=== PATIENT | female | born 1970 | race Caucasian/White ===

== ENCOUNTER 2018-12-20 20:22 | Observation (INO) | payer SELFPAY ==
[~2018-12-20] VITALS: Ht 172.7 cm; Wt 97.2 kg
[2018-12-20 11:50] VITALS: BP 129/84
[2018-12-20 21:12] LABS: BASOPHILS # (AUTO) 0.1 (0.0-0.1); BASOPHILS % 0.7 % (0.0-1.0); EOSINOPHILS # (AUTO) 0.3 (0.0-0.4); EOSINOPHILS % 2.1 % (0.0-6.0); HEMATOCRIT 35.1 % (34.2-44.1); HEMOGLOBIN 11.6 g/dL (12.0-16.0); LYMPHOCYTES # (AUTO) 2.7 (1.0-3.2); LYMPHOCYTES % 20.7 % (18.0-39.1); MEAN CORPUSCULAR HEMOGLOBIN 28.1 pg (28-32); MONOCYTES # (AUTO) 0.8 (0.2-0.8); MONOCYTES % 5.7 % (4.4-11.3); NEUTROPHILS # (AUTO) 9.3 (2.1-6.9); NEUTROPHILS % 70.3 % (38.7-80.0); PLATELET COUNT 386 x10e3/uL (140-360); RED BLOOD COUNT 4.13 x10e6/uL (3.6-5.1); RED CELL DISTRIBUTION WIDTH 13.1 % (11.7-14.4)
[2018-12-20 21:26] LABS: ALANINE AMINOTRANSFERASE 24 IU/L (0-55); ALBUMIN 3.1 g/dL (3.5-5.0); ALKALINE PHOSPHATASE 100 IU/L (40-150); BLOOD UREA NITROGEN 13 mg/dL (7-26); BUN/CREATININE RATIO 14 (6-25); CALCIUM 10.2 mg/dL (8.4-10.2); CARBON DIOXIDE 23 mmol/L (22-29); CHLORIDE 101 mmol/L (98-107); CREATININE, SERUM 0.93 mg/dL (0.57-1.11); EST GLOMERULAR FILTRATION RATE > 60 ML/MIN (60-); GLUCOSE 140 mg/dL (74-118); SODIUM 134 mmol/L (136-145)
[2018-12-20] MEDS ORDERED: no home meds (21:34)
[2018-12-20] MEDS ORDERED: VANCOMYCIN 1GM/NS 250 ML 250 ML IV STA (21:50)
[2018-12-20 22:28] VITALS: BP 158/106
[2018-12-20] MEDS: MORPHINE SULFATE INJ 4 MG/ML INJ 1ML IV PRN (22:29)
[2018-12-20] MEDS: ONDANSETRON HCL INJ 2MG/ML 2ML 2 MG/ML VIAL IV PRN (22:29)
[2018-12-20 23:35] VITALS: BP 139/58
[2018-12-21] VITALS (7 sets, daily range): BP systolic 115–129; BP diastolic 67–83
[2018-12-21] MEDS ORDERED: SODIUM CHLORIDE 0.9% 250ML 250 ML ONE (04:25)
--- NOTE | 2018-12-21 05:21 | NUR ---
Outside pharmacy states he is unable to locate patient's new abx orders. Will alert in-house pharmacy when they open.
[2018-12-21] MEDS: CEFEPIME 1GM/NS 0.9% 50 ML 50 ML IV SCH ×2 (05:24→15:34)
[2018-12-21] MEDS: VANCOMYCIN 1GM/NS 250 ML 250 ML IV SCH ×2 (05:24→16:12)
--- NOTE | 2018-12-21 06:55 | NUR ---
rounded with night club manager nurse, patient aware of change and in no distress. Call edward within reach and bed in lowest position
[2018-12-21] MEDS: ACETAMINOPHEN 325 MG TAB PO PRN (08:00)
--- NOTE | 2018-12-21 09:12 | NUR ---
SOCIAL WORK INITIAL ASSESSMENT Landing Worker to bedside to discuss plan of care with patient/family. CM/SW role and care transitions discussed. Anticipated discharge plan discussed along with duration of care. CM/SW discussed patients right to make decisions in care. CM/SW work hours given. Patient lives: IN APARTMENT WITH MOTHER AND SON, RELOCATED HERE FROM [place] 7 MONTHS AGO Admit/Transfer: VIA ED POA/Emergency contact: KENY SANCHEZ [phone] Current/Previous Home Health: NONE PCP/Follow-up Care: NONE GAVE RESOURCES FOR [facility] AND [facility] Current/Previous DME: NONE Other Services: NONE Employment Status: NONE Areas of Concerns: NONE Referral Needs: GAVE PACKET OF INFORMATION WITH COMMUNITY RESOURCES FOR ASSISTANCE WITH LOW TO NO INCOME TO PATIENT. RESOURCES THAT PATIENT MAY BE ABLE TO FOLLOW UP UPON DISCHARGE. PT EDUCATED ON EACH RESOURCE AND UNDERSTANDING HOW TO FOLLOW UP TO SEE IF QUALIFIED FOR EACH RESOURCE. Education Needs: NONE IMM/WELLS given and signed (if applicable): NA Goal for discharge: RETURN HOME CM/SW left business card at the bedside with contact information. Name and number was also written on the patients whiteboard. Patient verbalized understanding of discussion. CM will follow-up with ongoing discharge and transition of care needs.
--- NOTE | 2018-12-21 09:14 | NUR ---
FILED POST DISCHARGE STATUS FORM IN FRONT OF CHART PT TO RETURN HOME WITH NO NEEDS
--- NOTE | 2018-12-21 13:31 | Consultation ---
DATE OF CONSULTATION: REASON FOR CONSULTATION: Cellulitis of the breast, perhaps early abscess. This patient who is a very pleasant 48-year-old white female denies past medical history. Comes in with a 4-day history of redness and swelling. An ulcer noted on her right breast. There is no specific trauma that she can think of. It happened spontaneously. The patient came to the restroom, which she was evaluated and started on IV antibiotics. Infectious disease was consulted. Surgery was consulted. PAST MEDICAL HISTORY: She denies. PAST SURGICAL HISTORY: She denies. ALLERGIES: NKA. SOCIAL HISTORY: There is no smoking, drug abuse or alcohol abuse. FAMILY HISTORY: Noncontributory. REVIEW OF SYSTEMS: At present time: HEENT: Negative. PULMONARY: Negative. CARDIAC: Negative. : Negative. SKIN: There is no other rashes. PHYSICAL EXAMINATION GENERAL: She is currently alert and oriented. Does not seem to be in acute distress. VITALS: Stable. Afebrile. HEENT: Normocephalic. Not icteric. NECK: Supple. No JVD. No palpable thyromegaly. CHEST: Clear bilaterally. HEART: S1 and S2. No S3, S4 or murmur. ABDOMEN: Soft. Bowel sounds present. No tenderness. No hepatosplenomegaly. EXTREMITIES: No edema. BREASTS: On bilateral breasts, there is erythema. There is edema. There is no fluctuation. There is minimal induration. There is an ulcer about 1 x 1 cm noted with yellow eschar at the base. IMPRESSION: Cellulitis of the breast, early abscess. She is currently on vancomycin and cefepime. Agree with above. Obtain wound culture. Will check CBC and check Chem panel. Follow vancomycin trough. Further recommendations to follow. Job#: [id number] MT
--- NOTE | 2018-12-21 19:06 | NUR ---
report given to cook night nurse, patient aware of change. Call edward within reach and bed in lowest position.
[2018-12-21] MEDS: ONDANSETRON HCL INJ 2MG/ML 2ML 2 MG/ML VIAL IV PRN (19:15)
[2018-12-21] MEDS: MORPHINE SULFATE INJ 4 MG/ML INJ 1ML IV PRN (19:15)
[2018-12-22] VITALS (8 sets, daily range): BP systolic 114–132; BP diastolic 62–92
[2018-12-22] MEDS: CEFEPIME 1GM/NS 0.9% 50 ML 50 ML IV SCH ×2 (04:05→15:54)
[2018-12-22] MEDS: VANCOMYCIN 1GM/NS 250 ML 250 ML IV SCH ×2 (04:05→15:54)
[2018-12-22 07:10] LABS: BASOPHILS # (AUTO) 0.1 (0.0-0.1); BASOPHILS % 0.6 % (0.0-1.0); EOSINOPHILS # (AUTO) 0.4 (0.0-0.4); HEMATOCRIT 32.8 % (34.2-44.1); HEMOGLOBIN 10.6 g/dL (12.0-16.0); LYMPHOCYTES # (AUTO) 3.1 (1.0-3.2); LYMPHOCYTES % 25.8 % (18.0-39.1); MEAN CORPUSCULAR HEMOGLOBIN 27.8 pg (28-32); MEAN CORPUSCULAR HGB CONC 32.3 g/dL (31-35); MEAN CORPUSCULAR VOLUME 86.1 fL (81-99); MONOCYTES # (AUTO) 0.9 (0.2-0.8); MONOCYTES % 7.5 % (4.4-11.3); NEUTROPHILS # (AUTO) 7.4 (2.1-6.9); NEUTROPHILS % 62.8 % (38.7-80.0); PLATELET COUNT 324 x10e3/uL (140-360); RED BLOOD COUNT 3.81 x10e6/uL (3.6-5.1); RED CELL DISTRIBUTION WIDTH 13.2 % (11.7-14.4)
[2018-12-22] MEDS: ACETAMINOPHEN 325 MG TAB PO PRN (07:27)
--- NOTE | 2018-12-22 07:35 | NUR ---
culture of breast wound sent to lab as ordered. see shift assess.
[2018-12-22] MEDS ORDERED: MIDAZOLAM HCL 2 MG/2 ML VIAL ONE (14:16)
[2018-12-22] MEDS ORDERED: FENTANYL CITRATE/PF 100MCG/2 ML INJ ONE (14:16)
[2018-12-22] MEDS ORDERED: BACITRACIN 50,000 UNIT VIAL ONE (14:36)
--- NOTE | 2018-12-22 14:52 | Consultation ---
DATE OF CONSULTATION: December 22, 2018 SURGICAL CONSULTATION REFERRING PHYSICIAN: Dr. Jacques Meyers. HISTORY OF PRESENT ILLNESS: Patient is a 48-year-old female who presents with complaints of pain and swelling in the right breast that started about 5 days ago. She was admitted to the hospital 2 days ago and has been treated with IV antibiotics, but the swelling has persisted with a concern that there may be an abscess in the right breast. The patient's past medical history is otherwise unremarkable. She has no chronic medical problems. She says she has hypothyroidism and is supposed to be taking hormone but is not taking it now. She has not had previous surgery. ALLERGIES: THERE ARE NO KNOWN ALLERGIES. FAMILY HISTORY: Noncontributory. SOCIAL HISTORY: The patient does not smoke cigarettes or drink alcohol. REVIEW OF SYSTEMS: As stated above. She has not had any fever. She has not had problems with her breasts in the past. PHYSICAL EXAMINATION: GENERAL: The patient is awake and alert, in no distress. VITALS: Normal. She is afebrile. HEENT: Unremarkable. Sclera is nonicteric. NECK: Supple with no masses. LUNGS: Equal breath sounds are clear bilaterally. CARDIAC: Regular rate and rhythm with no murmur. BREASTS: In the right breast there is erythema and swelling with induration and some fluctuance. There is no abnormality of the left breast. ABDOMEN: Soft. No tenderness. No mass. No organomegaly. EXTREMITIES: Have no edema. Pulses are palpable. NEUROLOGIC: Intact. LABORATORY DATA: White blood cell count is slightly elevated at 11.8. Hemoglobin and hematocrit are normal. Chemistries are essentially normal. ASSESSMENT: A 48-year-old female with abscess in the right breast which has not improved with intravenous antibiotics. PLAN: Incision and drainage to be done in the operating room today. Procedure was explained to the patient including risks, benefits and alternatives. She understands. She has had the opportunity to ask questions. Thank you for asking me to see Ms. Jones. Job#: [id number] EV
[2018-12-22] MEDS ORDERED: HYDROCODONE/APAP 5MG-325MG TAB PO PRN (15:00)
[2018-12-22] MEDS ORDERED: ONDANSETRON HCL INJ 2MG/ML 2ML 2 MG/ML VIAL IV PRN (15:00)
--- NOTE | 2018-12-22 15:43 | Operative Report ---
DATE OF PROCEDURE: December 22, 2018 PREOPERATIVE DIAGNOSES: 1. Right breast abscess. 2. Right breast cellulitis. POSTOPERATIVE DIAGNOSES: 1. Right breast abscess. 2. Right breast cellulitis. PROCEDURE: Incision and drainage of right breast abscess with incisional biopsy from right breast abscess. INSECTICIDE MIXER: None. ANESTHESIA: General. INDICATIONS AND FINDINGS: The patient is a 48-year-old female who was admitted to the hospital with complaints of redness and swelling in the right breast. Exam revealed an abscess. At surgery there was an abscess in the right breast in the inner lower quadrant containing approximately 5 mL of purulent fluid. There was also some devitalized subcutaneous tissue which was excised and some devitalized overlying the skin. TECHNIQUE: After adequate general anesthesia with patient in the supine position, the right breast was prepped and draped in sterile fashion with Betadine solution. An elliptical incision was made encompassing some necrotic skin over the area of the abscess, and the abscess cavity was entered. About 5 mL of purulent fluid was drained. A sample was taken for culture and sensitivity. There was some devitalized subcutaneous tissue, and this was excised as well as some more of the skin. This was submitted as a biopsy, as was some of the wall of the abscess. Hemostasis was achieved with electrocautery. The abscess cavity was irrigated with saline. It was then packed open with 1/2 inch iodoform gauze and a sterile dressing applied. The patient tolerated the procedure well. Estimated blood loss was 5 mL. There were no complications. All counts were correct. The patient was taken to the recovery room in satisfactory condition. Job#: [id number] EV cc:WESLY WORLEY MD
[2018-12-22] MEDS ORDERED: PROPOFOL IV EMULSION 10 MG/ML 20 ML VIAL ONE (16:15)
[2018-12-22] MEDS ORDERED: SEVOFLURANE INHAL SOLN 250 ML PEN BTL ONE (16:15)
[2018-12-22] MEDS ORDERED: KETOROLAC TROMETHAMINE 30 MG/ML VIAL ONE (16:15)
[2018-12-22] MEDS ORDERED: DEXAMETHASONE SOD PHOS INJ 4 MG/ML VIAL ONE (16:15)
[2018-12-22] MEDS ORDERED: ONDANSETRON HCL INJ 2MG/ML 2ML 2 MG/ML VIAL ONE (16:15)
[2018-12-22] MEDS ORDERED: LIDOCAINE HCL 2% LOCAL INJ 5 ML SDV VIAL INJ ONE (16:15)
--- NOTE | 2018-12-23 00:47 | NUR ---
PATIENT IS ASLEEP, SHE'S EASY TO AROUSE. DRESSING REMAINS DRY AND INTACT TO THE RIGHT BREAST, PATIENT DENIES PAIN. CALL LIGHT WITHIN EASY REACH, INSTRUCTED TO CALL FOR ASSISTANCE NEEDED.
[2018-12-23 01:00] VITALS: BP 114/72
--- NOTE | 2018-12-23 03:50 | NUR ---
PATIENT CONDITION STABLE, SHE DENIES PAIN. NO DRAINAGE OR BLEED NOTED FROM THE DRESSING TO THE RIGHT BREAST.
[2018-12-23] MEDS: CEFEPIME 1GM/NS 0.9% 50 ML 50 ML IV SCH (04:09)
[2018-12-23 04:30] VITALS: BP 123/78
[2018-12-23] MEDS: VANCOMYCIN 1GM/NS 250 ML 250 ML IV SCH ×2 (04:54→14:42)
--- NOTE | 2018-12-23 07:02 | Progress Note ---
DATE: SUBJECTIVE: This 48-year-old female comes in with cellulitis of the breast and abscess of the breast. The patient is status post incision and drainage of the breast. The patient is currently on vancomycin and cefepime, and hydrocodone for pain control. Currently feeling better, afebrile, no pain noted. The patient is alert and oriented x3. OBJECTIVE VITAL SIGNS: Temperature is 97.3, pulse of 84, blood pressure is 123/78, and pulse oximetry of 95% on room air. GENERAL: The patient is alert and oriented x3. HEENT: Normocephalic and atraumatic. Pupils are reactive to light and accommodation. CVS: S1 and S2 normal. Regular rate and rhythm. ABDOMEN: Nontender and nondistended. BREASTS: Right breast, radiology equipment servicer in room, the patient's right breast has been covered and no drainage and bandage looks clean and dry. LABORATORY VALUES: The patient's white count is 11.83, hemoglobin of 10.6, hematocrit of 32.8. Chemistry; sodium 134 and glucose is 140. TOXICOLOGY: Vancomycin trough was 4.5. Microbiology: The patient's gram-stain and anaerobic culture pending. Gram-stain wound culture pending. Blood cultures, no growth in 48 hours. ASSESSMENT AND PLAN: Right breast cellulitis and abscess status post I and D. We will continue to monitor the patient. Awaiting culture results. At this point in time, we will continue the patient on vancomycin and cefepime. Further recommendations per clinical course. We will continue to monitor the patient. The patient's glucose has been running high, questionable diabetes, so we will order hemoglobin A1c and labs for tomorrow. Job#: [id number] BHAVNA
[2018-12-23 07:53] VITALS: BP 143/81
--- NOTE | 2018-12-23 08:02 | NUR ---
Patient up in bed, Alert with no distress, I&D site right breast dressing is intact, no c/o pain, denies any chest pain or SOB, Call light in reach
[2018-12-23 10:32] VITALS: BP 143/81
[2018-12-23 11:23] VITALS: BP 148/88
--- NOTE | 2018-12-23 13:08 | NUR ---
Dr. Medina has written ok for dc. Nick VERA is aware and has call out to ID for RX for antibiotics for pt. She has staph aureus in wound cx.
--- NOTE | 2018-12-23 13:10 | NUR ---
Patient had shower and dressing changedon right breast.
--- NOTE | 2018-12-23 14:20 | NUR ---
Dr Salvador here for rounds, recvd new order to give evening Dos of vancomycin 1g IV give it now and after that patient can go home, prescription given for oral antibiotic. New discharge order recvd from Dr Foss
[2018-12-23 15:39] VITALS: BP 149/92
[2018-12-23] MEDS ORDERED: DOXYCYCLINE HY100 MG PO (16:06)
--- NOTE | 2018-12-23 16:47 | NUR ---
Patient discharged home. Dressing on rt breast is intact with packing inside, no drainage or bleeding noted, patient denies any pain this time, prescription given, she aware about f/up appointments, IV canula removed with tip intact, no ss of infiltration noted, her mother at bed side giving ride and she got all personnel belongings with her.
== END 2018-12-23 16:35 | disposition home or self-care (01) ==
LOC: ER 20:22 → INTOOBSV 22:35 → ERHOLD 22:35 → IMCU 23:18
PROVIDERS: ADMIT Internal Medicine; ATTEND Internal Medicine
DX: N61.1 Abscess of the breast and nipple (principal); L03.313 Cellulitis of chest wall; I10 Essential (primary) hypertension; E03.9 Hypothyroidism, unspecified; D64.9 Anemia, unspecified; D72.829 Elevated white blood cell count, unspecified; B95.62 Methicillin resistant Staphylococcus aureus infection as the cause of diseases classified elsewhere
CPT/HCPCS: 19120; 36415 ×3; 80053; 80202; 83036; 83605; 85025 ×2; 87040; 87071; 87075; 87186; 87205; 88304; 99284; G0378 ×4; J0692 ×3; J1100; J1885; J2001; J2250; J2270 ×2; J2405 ×3; J2704; J3370 ×4; J7050; 88305

== ENCOUNTER 2019-12-26 16:54 | Emergency (ER) | payer OTHER ==
[~2019-12-26] VITALS: Ht 172.7 cm; Wt 97.1 kg
[~2019-12-26 16:54] MED LIST: DOXYCYCLINE HY100 MG PO; no home meds
[2019-12-26] MEDS ORDERED: FAMOTIDINE 20 MG/2 ML VIAL IV STA (17:13)
[2019-12-26] MEDS ORDERED: ASPIRIN 81 MG CHEW TAB PO ONE (17:15)
[2019-12-26 17:23] LABS: BASOPHILS # (AUTO) 0.1 (0.0-0.1); BASOPHILS % 0.7 % (0.0-1.0); EOSINOPHILS # (AUTO) 0.4 (0.0-0.4); HEMATOCRIT 38.6 % (34.2-44.1); HEMOGLOBIN 12.3 g/dL (12.0-16.0); LYMPHOCYTES # (AUTO) 2.2 (1.0-3.2); LYMPHOCYTES % 18.8 % (18.0-39.1); MEAN CORPUSCULAR HEMOGLOBIN 24.9 pg (28-32); MEAN CORPUSCULAR HGB CONC 31.9 g/dL (31-35); MEAN CORPUSCULAR VOLUME 78.3 fL (81-99); MONOCYTES # (AUTO) 0.5 (0.2-0.8); MONOCYTES % 4.1 % (4.4-11.3); NEUTROPHILS # (AUTO) 8.7 (2.1-6.9); NEUTROPHILS % 73.1 % (38.7-80.0); PLATELET COUNT 398 x10e3/uL (140-360); RED BLOOD COUNT 4.93 x10e6/uL (3.6-5.1); RED CELL DISTRIBUTION WIDTH 14.6 % (11.7-14.4)
[2019-12-26 17:34] LABS: INR 0.87; PROTHROMBIN TIME 12.3 seconds (11.9-14.5)
[2019-12-26 17:43] LABS: ALANINE AMINOTRANSFERASE 27 IU/L (0-55); ALBUMIN 3.8 g/dL (3.5-5.0); ALKALINE PHOSPHATASE 103 IU/L (40-150); BLOOD UREA NITROGEN 9 mg/dL (7-26); BUN/CREATININE RATIO 11 (6-25); CALCIUM 10.2 mg/dL (8.4-10.2); CHLORIDE 106 mmol/L (98-107); CREATINE KINASE 188 IU/L (29-168); CREATININE, SERUM 0.84 mg/dL (0.57-1.11); EST GLOMERULAR FILTRATION RATE > 60 ML/MIN (60-); GLUCOSE 110 mg/dL (74-118); POTASSIUM 3.9 mmol/L (3.5-5.1); SODIUM 137 mmol/L (136-145)
[2019-12-26 17:59] LABS: ANION GAP 10.9 mmol/L (8-16); CARBON DIOXIDE 24 mmol/L (22-29); LIPASE 13 U/L (8-78)
[2019-12-26] MEDS ORDERED: IOPAMIDOL 370 MG/ML 200 ML INFUS..BTL INJ ONE (18:19)
[2019-12-26] MEDS ORDERED: SODIUM CHLORIDE 0.9% 50ML 50 ML ONE (18:19)
[2019-12-26 19:04] LABS: CLARITY,URINE CLEAR (CLEAR); COLOR,URINE YELLOW (YELLOW)
[2019-12-26 19:05] LABS: BILIRUBIN,URINE NEGATIVE (NEGATIVE); KETONES,URINE NEGATIVE (NEGATIVE); LEUKOCYTE ESTERASE ,URINE NEGATIVE (NEGATIVE); NITRITE,URINE NEGATIVE (NEGATIVE); PROTEIN,URINE DIPSTICK NEGATIVE (NEGATIVE); URINE UROBILINOGEN 0.2 mg/dL (0.2 - 1)
[2019-12-26 19:08] LABS: BACTERIA,URINE MODERATE /HPF; EPITHELIAL CELLS,URINE MODERATE /LPF
--- NOTE | 2019-12-26 20:28 | Diagnostic Imaging Report ---
ADDENDUM #1 Addendum: Impression: 3. There is a band like area of density in the lateral aspect of the left breast. Correlation with findings of mammography is recommended if not recently performed. Signed by: Dr. Yonatan Ward M.D. on 12/26/2019 8:46 PM ORIGINAL REPORT EXAM: CT Abdomen and Pelvis WITH contrast INDICATION: ^Epigastric pain ^20191226 ^1814 COMPARISON: None. TECHNIQUE: Abdomen and pelvis were scanned utilizing a multidetector helical scanner from the lung base to the pubic symphysis after administration of IV contrast. Coronal and sagittal reformations were obtained. Routine protocol was performed. Scan was performed when during portal venous phase. Dose modulation, iterative reconstruction, and/or weight based adjustment of the mA/kV was utilized to reduce the radiation dose to as low as reasonably achievable. IV CONTRAST: 100 mL of Isovue-370 ORAL CONTRAST: Water RADIATION DOSE: Total DLP: 828.23 mGy*cm Estimated effective dose: (DLP x 0.015 x size factor) mSv COMPLICATIONS: None FINDINGS: LINES and TUBES: None. LOWER THORAX: Lung bases are clear. Heart size normal. HEPATOBILIARY: Low density along the anterior aspect of the falciform ligament likely represents localized fatty infiltration. Liver parenchyma is diffusely lower density than the spleen suggesting steatosis. No other focal hepatic lesions. No biliary ductal dilation. GALLBLADDER: No radio-opaque stones or sludge. No wall thickening. SPLEEN: No splenomegaly. PANCREAS: No focal masses or ductal dilatation. ADRENALS: No adrenal nodules KIDNEYS/URETERS: Kidneys enhance symmetrically. No hydronephrosis. No cystic or solid mass lesions. No stones. GI TRACT: There is distention of the terminal ileum with wall thickening and air-fluid level. There is also distention with mild wall thickening of the cecum and ascending colon. Mild wall thickening without distention is seen in the transverse colon and sigmoid. The appendix is mildly prominent measuring up to 8 mm but diffusely contains air and is without surrounding inflammation. PELVIC ORGANS/BLADDER: Urinary bladder unremarkable. There is a 6.0 cm cystic-appearing structure in the left adnexa with internal density of 20 HU. No surrounding inflammation or fluid. The uterus is retroverted. LYMPH NODES: No dominant lymph node mass is seen in the abdomen, retroperitoneum or pelvis. There are mildly prominent likely reactive nodes in the right lower abdomen measuring up to 7 mm. VESSELS: Abdominal aorta, IVC and portal system appear unremarkable. PERITONEUM / RETROPERITONEUM: No pneumoperitoneum or ascites. BONES: No acute or suspicious bony lesions. SOFT TISSUES: Superficial surrounding soft tissue shows an area of density in the lateral aspect of the left breast.. IMPRESSION: 1. Distended distal ileum, cecum and ascending colon with wall thickening. Wall thickening also seen in the transverse colon and sigmoid. There is mild prominence of the appendix which contains air and does not appear inflamed, likely as a part of the same process involving the distal ileum and cecum. Findings are most suggestive of inflammatory bowel disease, less likely ileocolic infection. 2. There is a 6 cm cystic appearing structure in the left adnexa with internal density slightly greater than simple cyst fluid. This likely represents a complicated or hemorrhagic ovarian cyst. Because of its size, consider follow-up with pelvic ultrasound in 3-4 weeks to assess resolution. Staff: Sylvia Signed by: Dr. Yonatan Ward M.D. on 12/26/2019 8:26 PM
[2019-12-26] MEDS ORDERED: CIPRO500 MG PO (21:24)
[2019-12-26] MEDS ORDERED: FLAGYL500 MG PO (21:25)
[2019-12-26] MEDS ORDERED: SODIUM CHLORIDE 0.9% 1000ML 1,000 ML ONE (22:07)
== END 2019-12-26 22:05 | disposition home or self-care (01) ==
LOC: ER 16:54
DX: R10.13 Epigastric pain (principal)
CPT/HCPCS: 36415; 74177; 80053; 81001; 82550; 82553; 83690; 83880; 84484; 85025; 85610; 93005; 99284; J7030; Q9967

== ENCOUNTER 2020-01-03 12:09 | Inpatient (IN) | payer OTHER ==
[~2020-01-03] VITALS: Ht 172.7 cm; Wt 96.6 kg
[~2020-01-03 12:09] MED LIST changes: +CIPRO500 MG PO; +FLAGYL500 MG PO
--- OUTSIDE RECORDS SUMMARY | 2020-01-03 12:12 | XMS REPORT ---
Author Author [facility] Address Unknown Phone Unavailable Care Team Providers Care Wrapper Selector Name Role Phone DAVIS TURK Unavailable Unavailable Problems This patient has no known problems. Allergies, Adverse Reactions, Alerts This patient has no known allergies or adverse reactions. Medications This patient has no known medications. Results Test Description Test Time Test Comments Text Results Atomic Results Result Comments CT ABDOMEN/PELVIS W 2019-12-26 20:11:00 [place] [id number] Patient Name: PAULA LYNCH MR #: [id number] : 1970 Age/Sex: 49/F Req #: [id number] [facility] Physician: Ordered by: DAVIS TURK DO Report #: [id number] Location: ER Room/Bed: Procedure: [id number] CT/CT ABDOMEN/PELVIS W Exam Date: 12/26/19 Exam Time: 1814 REPORT STATUS: Signed ADDENDUM #1 Addendum: Im pression: 3. There is a band like area of density in the lateral aspect of the left breast. Correlation with findings of mammography is recommended if not recently performed. Signed by: Dr. Zenaida Wynn M.D. on 12/26/2019 8:46 PM ORIGINAL REPORT EXAM: CT Abdomen and Pelvis WITH contrast INDICATION: Epigastric pain [id number] COMPARISON: None. TECHNIQUE: Abdomen and pelvis were scanned utilizing a multidetector helical scanner from the lung base to the pubic symphysis after administration of IV contrast. Coronal and sagittal reformations were obtained. Routine protocol was performed. Scan was performed when during portal venous phase. Dose modulation, iterative reconstruction, and/or weight based adjustment of the mA/kV was utilized to reduce the radiation dose to as low as reasonably achievable. IV CONTRAST: 100 mL of Isovue-370 ORAL CONTRAST: Water RADIATION DOSE: Tota l DLP: 828.23 mGy*cm Estimated effective dose: (DLP x 0.015 x size factor) mSv COMPLICATIONS: None FINDINGS: LINES and TUBES: None. LOWER THORAX: Lung bases are clear. Heart size normal. HEPATOBILIARY: Low density along the anterior aspect of the falciform ligament likely represents localized fatty infiltration. Liver parenchyma is diffusely lower density than the spleen suggesting steatosis. No other focal hepatic lesions. No biliary ductal dilation. GALLBLADDER: No radio-opaque stones or sludge. No wall thickening. SPLEEN: No splenomegaly. PANCREAS: No focal masses or ductal dilatation. ADRENALS: No adrenal nodules KIDNEYS/URETERS: Kidneys enhance symmetrically. No hydronephrosis. No cystic or solid mass lesions. No stones. GI TRACT: There is distention of the terminal ileum with wall thickening and air-fluid level. There is also distention with mild wall thickening of the cecum and ascending colon. Mild wall thickening without distention is seen in the transverse colon and sigmoid. The appendix is mildly prominent measuring up to 8 mm but diffusely contains air and is without surrounding inflammation. PELVIC ORGANS/BLADDER: Urinary bladder unremarkable. There is a 6.0 cm cystic- appearing structure in the left adnexa with internal density of 20 HU. No surrounding inflammation or fluid. The uterus is retroverted. LYMPH NODES: No dominant lymph node mass is seen in the abdomen, retroperitoneum or pelvis. There are mildly prominent likely reactive nodes in the right lower abdomen measuring up to 7 mm. VESSELS: Abdominal aorta, IVC and portal system appear unremarkable. PERITONEUM / RETROPERITONEUM: No pneumoperitoneum or ascites. BONES: No acute or suspicious bony lesions. SOFT TISSUES: Superficial surrounding soft tissue shows an area of density in the lateral aspect of the left breast.. IMPRESSION: 1. Distended distal ileum, cecum and ascending colon with wall thickening. Wall thickening also seen in the transverse colon and sigmoid. There is mild prominence of the appendix which contains air and does not appear inflamed, likely as a part of the same process involving the distal ileum and cecum. Findings are most suggestive of inflammatory bowel disease, less likely ileocolic infection. 2. There is a 6 cm cystic appearing structure in the left adnexa with internal density slightly greater than simple cyst fluid. This likely represents a complicated or hemorrhagic ovarian cyst. Because of its size, consider follow- up with pelvic ultrasound in 3-4 weeks to assess resolution. Staff: Sylvia Signed by: Dr. Zenaida Wynn M.D. on 12/26/2019 8:26 PM Dictated By: ZENAIDA WYNN MD 46 Transcribed By: BUBBA on 12/26/192025 COPY TO: DAVIS TURK DO
[2020-01-03] MEDS ORDERED: PIPER-TAZ 3.375 GM 50 ML IV STA ×2 (12:17)
[2020-01-03] MEDS ORDERED: SODIUM CHLORIDE 0.9% 1000ML 1,000 ML IV STA (12:17)
[2020-01-03] MEDS ORDERED: MORPHINE SULFATE INJ 4 MG/ML INJ 1ML IV STA (12:17)
[2020-01-03] MEDS ORDERED: PANTOPRAZOLE 40 MG 10ML VIAL IV STA (12:25)
[2020-01-03 12:37] LABS: BASOPHILS # (AUTO) 0.1 (0.0-0.1); BASOPHILS % 0.6 % (0.0-1.0); EOSINOPHILS # (AUTO) 0.3 (0.0-0.4); EOSINOPHILS % 2.7 % (0.0-6.0); HEMATOCRIT 35.9 % (34.2-44.1); HEMOGLOBIN 11.5 g/dL (12.0-16.0); LYMPHOCYTES # (AUTO) 1.9 (1.0-3.2); LYMPHOCYTES % 18.2 % (18.0-39.1); MONOCYTES # (AUTO) 0.7 (0.2-0.8); MONOCYTES % 6.5 % (4.4-11.3); NEUTROPHILS # (AUTO) 7.4 (2.1-6.9); NEUTROPHILS % 71.7 % (38.7-80.0); PLATELET COUNT 382 x10e3/uL (140-360); RED CELL DISTRIBUTION WIDTH 14.6 % (11.7-14.4)
[2020-01-03 13:00] LABS: INR 0.92; PROTHROMBIN TIME 12.9 seconds (11.9-14.5)
[2020-01-03 13:01] LABS: PARTIAL THROMBOPLASTIN TIME 29.6 seconds (23.8-35.5)
[2020-01-03 13:07] LABS: ALBUMIN 3.4 g/dL (3.5-5.0); ANION GAP 9.3 mmol/L (8-16); CALCIUM 9.9 mg/dL (8.4-10.2); POTASSIUM 3.3 mmol/L (3.5-5.1)
--- NOTE | 2020-01-03 14:04 | Diagnostic Imaging Report ---
TECHNIQUE: Frontal and lateral views of the chest. INDICATION: 49-year-old woman with abdominal pain. COMPARISON: None. FINDINGS: LINES/TUBES: None. LUNGS: No consolidation or pulmonary edema. PLEURA: No pleural effusion or pneumothorax. HEART AND MEDIASTINUM: The cardiomediastinal silhouette is within normal limits. SOFT TISSUES AND BONES: Mild degenerative changes of the thoracic spine. Soft tissues are unremarkable. IMPRESSION: No acute cardiopulmonary abnormalities. Signed by: Carlos Felix MD on 01/03/2020 2:02 PM
--- NOTE | 2020-01-03 15:00 | NUR ---
EDUCATED PATIENT THAT URINE SAMPLE WAS ORDERED BUT SHE IS NOT ABLE TO URINATE AT THE MOMENT BECAUSE SHE WAS TOLD TO URINATE WHILE IN CT BUT NO SPECIMEN WAS COLLECTED EDUCATED PATIENT TO NOTIFY ME VIA CALL HOWARD WHEN SHE COULD PROVIDE A URINE SAMPLE.
--- NOTE | 2020-01-03 15:40 | Diagnostic Imaging Report ---
EXAM: CT Abdomen and Pelvis WITH intravenous contrast INDICATION: Right abdominal pain COMPARISON: None. TECHNIQUE: Abdomen and pelvis were scanned utilizing a multidetector helical scanner from the lung base to the pubic symphysis after administration of IV contrast. Coronal and sagittal reformations were obtained. Routine protocol was performed. Scan was performed during portal venous phase. IV CONTRAST: 100mL of Isovue 370 ORAL CONTRAST: Water RADIATION DOSE: Total DLP: 831 mGy*cm Dose modulation, iterative reconstruction, and/or weight based adjustment of the mA/kV was utilized to reduce the radiation dose to as low as reasonably achievable. FINDINGS: LOWER THORAX: Normal. HEPATOBILIARY: Diffuse hepatic steatosis. No focal liver lesion. No biliary ductal dilation. Unremarkable gallbladder. SPLEEN: No splenomegaly. PANCREAS: No focal masses or ductal dilatation. ADRENALS: No adrenal nodules. KIDNEYS/URETERS: No hydronephrosis, stones, or solid mass lesions. PELVIC ORGANS/BLADDER: Unchanged left adnexal cystic structure. PERITONEUM / RETROPERITONEUM: No free fluid or free air. LYMPH NODES: No lymphadenopathy. VESSELS: Unremarkable. GI TRACT: Focal narrowing and colonic wall thickening at the hepatic flexure with associated upstream dilation of large and small bowel, for example dilation of the cecum measuring up to 9.7 cm and diffusely dilated loops of distal small bowel measuring up to 3.2 cm with numerous air-fluid levels. BONES AND SOFT TISSUES: No acute osseous injury. No suspicious lytic or blastic lesions. IMPRESSION: Interval development of small and proximal large bowel obstruction with transition point at the previously noted area of focal narrowing and wall thickening at the hepatic flexure. This may represent malignancy versus stricture related to inflammatory bowel disease. No free air. Signed by: Lois Rayo MD on 01/03/2020 3:38 PM
--- NOTE | 2020-01-03 15:46 | Diagnostic Imaging Report ---
EXAM: Right upper quadrant abdominal ultrasound INDICATION: Right upper quadrant pain COMPARISON: CT abdomen and pelvis of the same day TECHNIQUE: Transverse and longitudinal images of the right upper quadrant abdomen were obtained FINDINGS: Liver: Size: 14.2 cm in the right midclavicular line, normal Appearance: Increased echogenicity, smooth contour Mass: No focal masses Gallbladder: Small amount of sludge in the gallbladder. Small echogenic foci at the neck of the gallbladder may represent small non-shadowing calculi. No gallbladder distension, pericholecystic fluid, wall thickening, or reported sonographic Moss's sign. Gallbladder wall measures 3 mm. Bile Ducts: Intrahepatic Ducts: No dilatation Extrahepatic Ducts: Common bile duct measures 3 mm Pancreas: Visualized portions of the pancreatic head, neck and proximal body are normal. Kidney: The right kidney measures 9.8 cm without evidence of hydronephrosis or stone. Vessels: Aorta: Visualized portions are normal Inferior Vena Cava: Visualized portions are normal Main Portal Vein: 1.0 cm, normal size with hepatopetal flow. Free Fluid: No ascites or pleural effusion IMPRESSION: Sludge and possible small calculi in the gallbladder. No sonographic evidence of cholecystitis. Signed by: Lois Rayo MD on 01/03/2020 3:43 PM
[2020-01-03] MEDS ORDERED: SODIUM CHLORIDE 0.9% 50ML 50 ML ONE (15:56)
[2020-01-03] MEDS ORDERED: IOPAMIDOL 370 MG/ML 200 ML INFUS..BTL INJ ONE (15:56)
[2020-01-03] MEDS ORDERED: D5.45%NS/KCL 20MEQ 1,000 ML IV SCH (16:44)
[2020-01-03] MEDS ORDERED: BENZOCAINE/TETRACAINE/BUTAMBEN AERO SPRAY 56 GM CAN TOP ONE (16:45)
[2020-01-03] MEDS ORDERED: MORPHINE SULFATE INJ 4 MG/ML INJ 1ML IV PRN (16:45)
[2020-01-03 16:51] LABS: BILIRUBIN,URINE NEGATIVE (NEGATIVE); CLARITY,URINE SL CLOUDY (CLEAR); COLOR,URINE YELLOW (YELLOW); KETONES,URINE NEGATIVE (NEGATIVE); LEUKOCYTE ESTERASE ,URINE NEGATIVE (NEGATIVE); NITRITE,URINE NEGATIVE (NEGATIVE); PROTEIN,URINE DIPSTICK NEGATIVE (NEGATIVE); URINE UROBILINOGEN 0.2 mg/dL (0.2 - 1)
[2020-01-03 17:07] LABS: BACTERIA,URINE RARE /HPF; EPITHELIAL CELLS,URINE FEW /LPF
[2020-01-03] MEDS ORDERED: PIPER-TAZ 3.375 GM / NS 50ML IV SCH (18:00)
--- NOTE | 2020-01-03 18:30 | NUR ---
attempted to place patients NG in both nostrils with no success. ER MD aware about failed attempts.
--- NOTE | 2020-01-03 19:32 | NUR ---
REPORT GIVEN TO MELY VERA
[2020-01-03] MEDS ORDERED: DIPHENHYDRAMINE HCL INJ 50 MG/ML VIAL IV ONE (20:15)
[2020-01-03] MEDS: PIPER-TAZ 3.375 GM 50 ML IV SCH (21:22)
[2020-01-03] MEDS ORDERED: CITRATE OF MAGNESIA 300ML BOTTLE PO ONE (22:15)
[2020-01-03] MEDS: ONDANSETRON HCL INJ 2MG/ML 2ML 2 MG/ML VIAL IV PRN (22:23)
--- NOTE | 2020-01-03 22:44 | Diagnostic Imaging Report ---
Exam: Abdominal film Clinical History: NG tube placement Comparison: CT abdomen and pelvis 01/03/2020 DISCUSSION: Enteric tube tip projects over the gastric body. Side port projects over the expected region of the gastroesophageal junction. Several dilated air-filled loops of small bowel are again noted. No mass effect or organomegaly. No abnormal calcifications. Regional skeletal structures are intact. The right flank is not included on the radiograph. IMPRESSION: Enteric tube tip projects over the proximal gastric body as above. Persistent small bowel dilatation seen to better advantage on comparison CT 01/03/2020. Signed by: Dr. Bj Alves M.D. on 01/03/2020 10:42 PM
[2020-01-03] MEDS ORDERED: ACETAMINOPHEN 1000 MG/100 ML IV PRN (23:45)
[2020-01-03] MEDS: D5NS/KCL 20MEQ 1,000 ML IV SCH (23:45)
[2020-01-03] MEDS ORDERED: HYDRALAZINE HCL 20 MG/ML VIAL IV PRN (23:45)
[2020-01-04] VITALS (8 sets, daily range): BP systolic 137–163; BP diastolic 84–92
--- NOTE | 2020-01-04 00:30 | NUR ---
RECEIVED PATIENT FROM ER AOX3, NO SIGNS OF DISTRESS NOTED. NG TUBE IS INTACT AND PATIENT VOICES NO PAIN AT THIS TIME. IV FLUIDS ARE RUNNING AT ORDERED RATE, PATIENT IS AWARE OF NPO FOR PROCEDURE AND HAS BEEN GIVEN MAGNESIUM CITRATE BY THE ER NURSE PREVIOUSLY. BED IS IN LOW POSITION, SIDE RAILS ARE UP, CALL LIGHT WITHIN REACH, WILL CONTINUE TO MONITOR.
--- NOTE | 2020-01-04 01:52 | Consultation ---
DATE OF CONSULTATION: 01/03/2020 HISTORY OF PRESENT ILLNESS: The patient is a 49-year-old female, who presents with complaints of right-sided abdominal pain. She says the pain started about a week ago, has progressively worse. She says she is not passing any flatus, not had a bowel movement for about four days. She has associated nausea and has tried to vomit. Evaluation with CT of the abdomen and pelvis revealed narrowing of the colon at the hepatic flexure with wall thickening and dilation of the proximal colon and dilated small bowel, suggesting high-grade large bowel obstruction. PAST MEDICAL HISTORY: Otherwise, unremarkable. She has no chronic medical problems. She had surgery about a year ago for a breast abscess. ALLERGIES: SHE HAS NO KNOWN ALLERGIES. MEDICATIONS: The only medication she was taking at home were antibiotics. FAMILY HISTORY: Noncontributory. SOCIAL HISTORY: The patient does not smoke cigarettes or drink alcohol. REVIEW OF SYSTEMS: As stated above, otherwise was negative. PHYSICAL EXAMINATION: GENERAL: The patient is awake and alert. VITAL SIGNS: At this time are essentially normal. HEENT: Sclerae is not icteric. NECK: No masses. LUNGS: Equal breath sounds are clear bilaterally. CARDIAC: Regular rate and rhythm with no murmur. ABDOMEN: Distended. There is tenderness on the right side. There are no definite signs of peritonitis. No mass. EXTREMITIES: Have no edema. Pulses are palpable. NEUROLOGIC: Intact. LABORATORY DATA: White blood cell count is 10.3, hemoglobin 11.5, and hematocrit 35.9. Chemistries reveal mild hypokalemia and mild hyponatremia. ASSESSMENT AND PLAN: 49-year-old female with large bowel obstruction with a stricture seen at the hepatic flexure, the colon is thickening, suggestive of a malignancy. The patient at this point having persistent pain with evidence of significant obstruction. We will probably best be treated with surgery, which I plan to schedule for tomorrow. Keep her n.p.o. for now with IV fluids. Proposed surgery was explained to the patient including risks, benefits, and alternatives. She understands. She has had the opportunity to ask questions. Planned laparoscopic-assisted right colon resection. Thank you for asking me to see Ms. Jones. MD MEÑO Adames/CARL /[id number]
[2020-01-04] MEDS: SODIUM CHLORIDE 0.9% 250ML IRRIG IR SCH ×9 (02:50→22:45)
[2020-01-04] MEDS: PIPER-TAZ 3.375 GM 50 ML IV SCH ×4 (02:50→21:03)
[2020-01-04 06:12] LABS: BASOPHILS # (AUTO) 0.1 (0.0-0.1); BASOPHILS % 0.6 % (0.0-1.0); EOSINOPHILS # (AUTO) 0.3 (0.0-0.4); EOSINOPHILS % 3.6 % (0.0-6.0); HEMATOCRIT 35.2 % (34.2-44.1); HEMOGLOBIN 11.1 g/dL (12.0-16.0); LYMPHOCYTES # (AUTO) 2.2 (1.0-3.2); LYMPHOCYTES % 23.3 % (18.0-39.1); MEAN CORPUSCULAR HEMOGLOBIN 24.7 pg (28-32); MEAN CORPUSCULAR HGB CONC 31.5 g/dL (31-35); MEAN CORPUSCULAR VOLUME 78.2 fL (81-99); MONOCYTES # (AUTO) 0.7 (0.2-0.8); MONOCYTES % 7.5 % (4.4-11.3); NEUTROPHILS # (AUTO) 6.2 (2.1-6.9); NEUTROPHILS % 64.7 % (38.7-80.0); PLATELET COUNT 371 x10e3/uL (140-360); RED CELL DISTRIBUTION WIDTH 14.8 % (11.7-14.4)
[2020-01-04 06:31] LABS: MAGNESIUM 2.2 MG/DL (1.3-2.1); PHOSPHORUS 2.1 MG/DL (2.3-4.7)
[2020-01-04 07:00] LABS: ALANINE AMINOTRANSFERASE 25 IU/L (0-55); ALKALINE PHOSPHATASE 75 IU/L (40-150); ANION GAP 10.5 mmol/L (8-16); BLOOD UREA NITROGEN 10 mg/dL (7-26); BUN/CREATININE RATIO 11 (6-25); CARBON DIOXIDE 26 mmol/L (22-29); CHLORIDE 103 mmol/L (98-107); CREATININE, SERUM 0.88 mg/dL (0.57-1.11); EST GLOMERULAR FILTRATION RATE > 60 ML/MIN (60-); GLUCOSE 113 mg/dL (74-118); POTASSIUM 3.5 mmol/L (3.5-5.1); SODIUM 136 mmol/L (136-145)
[2020-01-04 07:08] LABS: THYROID STIMULATING HORMONE 6.916 uIU/mL (0.350-4.940)
--- NOTE | 2020-01-04 08:00 | NUR ---
STANDBY ASSIST TO BR, VOIDING WITHOUT DIFFICULTY, STANDBY ASSIST BACK TO BED, NGT FLUSHED, CALL LIGHT WITHIN REACH
[2020-01-04] MEDS: PANTOPRAZOLE 40 MG 10ML VIAL IV SCH (09:00)
--- NOTE | 2020-01-04 09:00 | NUR ---
NO CHANGE IN CONDITION, CALL LIGHT WITHIN REACH
[2020-01-04] MEDS: D5NS/KCL 20MEQ 1,000 ML IV SCH ×2 (09:29→18:33)
[2020-01-04] MEDS ORDERED: BUPIVACAINE HCL 0.5% INJ 30 ML VIAL INJ ONE (12:36)
[2020-01-04] MEDS: ONDANSETRON HCL INJ 2MG/ML 2ML 2 MG/ML VIAL IV PRN (12:45)
--- NOTE | 2020-01-04 12:54 | NUR ---
PT MEDICATED PER MD ORDER FOR NAUSEA, PT WHEELED OFF UNIT FOR OR, NO CHANGE IN CONDITION
[2020-01-04] MEDS: DEXTROSE 5%/LACTATED RINGERS 1,000 ML IV SCH ×2 (14:39→18:35)
[2020-01-04] MEDS ORDERED: KETOROLAC TROMETHAMINE 30 MG/ML VIAL IV PRN (14:45)
[2020-01-04] MEDS ORDERED: NALOXONE HCL INJ 0.4 MG/ML AMP IV PRN (14:45)
[2020-01-04] MEDS ORDERED: DIPHENHYDRAMINE HCL INJ 50 MG/ML VIAL IM PRN (14:45)
[2020-01-04] MEDS ORDERED: ACETAMINOPHEN 1000 MG/100 ML IV PRN (14:45)
[2020-01-04] MEDS ORDERED: NEOSTIGMINE 1 MG/ML 10ML VIAL ONE ×2 (14:49→18:44)
[2020-01-04] MEDS: MORPHINE SULFATE 1 MG/ML 30ML PCA IV PRN (15:21)
[2020-01-04] MEDS ORDERED: FENTANYL CITRATE/PF 100MCG/2 ML INJ ONE ×2 (15:22→20:21)
--- NOTE | 2020-01-04 16:30 | NUR ---
BACK IN ROOM, NGT TO Elisabeth SANDY TO ANTHONY, KURTIS DRESSING INTACT, SCANT AMOUNT OF DRAINAGE AT BOTTOM OF DRESSING, ZIEGLER TO BSD, MICHELINE EMMANUEL SCD'S ,CALL LIGHT WITHIN REACH
[2020-01-04] MEDS ORDERED: SEVOFLURANE INHAL SOLN 250 ML PEN BTL ONE (18:44)
[2020-01-04] MEDS ORDERED: ROCURONIUM BROMIDE 10 MG/ML 5ML VIAL ONE (18:44)
[2020-01-04] MEDS ORDERED: PROPOFOL IV EMULSION 10 MG/ML 20 ML VIAL ONE (18:44)
[2020-01-04] MEDS ORDERED: GLYCOPYRROLATE INJ 0.2 MG/ML VIAL ONE (18:44)
[2020-01-04] MEDS ORDERED: DEXAMETHASONE SOD PHOS INJ 4 MG/ML VIAL ONE (18:44)
[2020-01-04] MEDS ORDERED: SUCCINYLCHOLINE CHLORIDE 20 MG/ML 10ML VIAL ONE (18:44)
[2020-01-04] MEDS ORDERED: ONDANSETRON HCL INJ 2MG/ML 2ML 2 MG/ML VIAL ONE (18:44)
[2020-01-04] MEDS ORDERED: LIDOCAINE HCL 2% LOCAL INJ 5 ML SDV VIAL INJ ONE (18:44)
--- NOTE | 2020-01-04 19:00 | NUR ---
Received patient in bed with eyes closed. NGT to left nare to LCS. white draining yellow clear urine to bedside. SURGICAL SUPPLIES STERILIZER pump in place. O2 at 2L/NC. Call light and SURGICAL SUPPLIES STERILIZER pump button within reach.
[2020-01-04] MEDS ORDERED: MIDAZOLAM HCL 2 MG/2 ML VIAL ONE (20:21)
--- NOTE | 2020-01-04 20:31 | NUR ---
Spoke with Dr. Garcia to verify IV fluids. Received order to d/c NS with LR and resume NS with KCL at 100ml/hr
--- NOTE | 2020-01-04 21:22 | Operative Report ---
DATE OF PROCEDURE: 01/04/2020 SURGEON: Bj Medina MD PREOPERATIVE DIAGNOSIS: Large bowel obstruction. POSTOPERATIVE DIAGNOSIS: Large bowel obstruction, secondary to transverse colon tumor. PROCEDURES: Diagnostic laparoscopy, open right hemicolectomy. ROOFING SALES REPRESENTATIVE: None. ANESTHESIA: General endotracheal. INDICATIONS AND FINDINGS: The patient is a 49-year-old female admitted to the hospital with complaints of severe abdominal pain and abdominal distention. Workup suggested large bowel obstruction. At Surgery, there was a tumor in the mid transverse colon with the proximal colon be massively dilated and ischemic. The small bowel all appeared viable. The distal colon was collapsed and all appeared viable. There was some enlarged lymph nodes in the mesentery. There was no mass in the liver. There was no retroperitoneal adenopathy. Aorta was not aneurysmal. TECHNIQUE: After adequate general endotracheal anesthesia, the patient in supine position, the abdomen was prepped and draped in a sterile fashion with ChloraPrep solution. Skin in the umbilicus was infiltrated with 0.5% Marcaine. Incision was made in the umbilicus, abdominal wall was elevated and Veress needle was introduced. Pneumoperitoneum was then created. A 10 mm trocar and cannula was then passed through this wound. Laparoscopic camera was introduced. Initial laparoscopy revealed the right colon to be extremely distended and ischemic. Small bowel was also distended. Because of the appearance of the colon site, it was not safe to proceed with laparoscopic surgery and a midline incision was made. The peritoneal cavity was entered. The right colon was mobilized by dividing the peritoneal attachments. Colon was mobilized all the way up to hepatic flexure and found that the colon was dilated to the mid transverse colon where there was a tumor in this area. The colon beyond the tumor was collapsed. The right colon was mobilized completely. Peritoneal attachments divided. The right ureter was identified and preserved. Once the colon was completely mobilized, the transverse colon was divided with a JESSIE stapler approximately 8 cm distal to the tumor. Mesentery of the colon divided with LigaSure device. Care was taken not to injure the ureter. The terminal ileum about 3 cm proximal to the cecum was divided with a JESSIE stapler. The remaining mesentery was divided and the specimen removed. There was some enlarged lymph nodes in the mesentery which were removed with the specimen. The anastomosis made between the terminal ileum and the transverse colon with a JESSIE stapler and TL60 stapler. Omentum was sutured over the staple line using 3-0 Vicryl. The peritoneal cavity was irrigated with large volume of warm saline, inspected for hemostasis which was seen to be adequate. It was irrigated further with saline. All fluid aspirated and inspected for hemostasis which was seen to be adequate. The midline fascia was then closed with running suture of #1 PDS, subcutaneous tissue was irrigated with saline. Skin was closed with jimena. Sterile dressing was applied. The patient tolerated the procedure well. Estimated blood loss was 150 mL. There were no complications. All counts were correct and the patient was taken to the recovery room in satisfactory condition. MD MEÑO Adames/ADRIELL /[id number] cc: Franck Garcia MD
[2020-01-05] VITALS (8 sets, daily range): BP systolic 127–136; BP diastolic 64–84
[2020-01-05] MEDS: D5NS/KCL 20MEQ 1,000 ML IV SCH (01:45)
[2020-01-05] MEDS: SODIUM CHLORIDE 0.9% 250ML IRRIG IR SCH ×6 (01:45→22:00)
[2020-01-05] MEDS: PIPER-TAZ 3.375 GM 50 ML IV SCH ×4 (02:29→20:33)
--- NOTE | 2020-01-05 06:06 | NUR ---
Preston catheter d/c. catheter tip intact.
[2020-01-05 06:31] LABS: BASOPHILS % 0.2 % (0.0-1.0); HEMATOCRIT 34.3 % (34.2-44.1); HEMOGLOBIN 10.4 g/dL (12.0-16.0); LYMPHOCYTES # (AUTO) 1.9 (1.0-3.2); LYMPHOCYTES % 12.5 % (18.0-39.1); MEAN CORPUSCULAR HEMOGLOBIN 24.5 pg (28-32); MEAN CORPUSCULAR HGB CONC 30.3 g/dL (31-35); MEAN CORPUSCULAR VOLUME 80.9 fL (81-99); MONOCYTES # (AUTO) 1.3 (0.2-0.8); MONOCYTES % 8.4 % (4.4-11.3); NEUTROPHILS # (AUTO) 12.1 (2.1-6.9); NEUTROPHILS % 78.4 % (38.7-80.0); PLATELET COUNT 353 x10e3/uL (140-360); RED BLOOD COUNT 4.24 x10e6/uL (3.6-5.1); RED CELL DISTRIBUTION WIDTH 15.1 % (11.7-14.4)
[2020-01-05 06:42] LABS: ANION GAP 7.3 mmol/L (8-16); CALCIUM 9.7 mg/dL (8.4-10.2); CREATININE, SERUM 1.04 mg/dL (0.57-1.11); POTASSIUM 4.3 mmol/L (3.5-5.1)
[2020-01-05] MEDS ORDERED: LEVOTHYROXINE SODIUM 100 MCG/VIAL IV ONE (08:00)
[2020-01-05] MEDS: PANTOPRAZOLE 40 MG 10ML VIAL IV SCH (09:00)
[2020-01-05] MEDS: DEXTROSE 5%/0.9% SOD CHL 1,000 ML IV SCH ×2 (11:00→18:00)
--- NOTE | 2020-01-05 13:00 | NUR ---
PT OOB WITH PHYSICAL THERAPIST, SITTING IN BS CHAIR, MD VAUGHN INTO SEE PT, OKAYYIMI FOR SIPS OF WATER AND ICE Addendum: 01/05/20 at 1417 by Ivy Garrison RN 0162
--- NOTE | 2020-01-05 14:15 | NUR ---
STANDBY ASSIST BACK TO BED, NGT IRRIGATED, PAIN CONTROLLED WITH TAPE WEAVER PUMP, CALL LIGHT WITHIN REACH, FAMILY AT SIDE
[2020-01-05] MEDS: MORPHINE SULFATE 1 MG/ML 30ML PCA IV PRN (15:02)
--- NOTE | 2020-01-05 19:37 | NUR ---
Received pt in bed with eyes open. Resp even and unlabored. ELECTRICAL INSTALLATION SUPERVISOR pump in place. D5 NS at 100ml to Lt FA SL. No c/o pain pain or discomfort at this time. Call light in reach. Bed in low position. Will cont to monitor
[2020-01-05] MEDS ORDERED: LEVOTHYROXINE SODIUM 100 MCG/VIAL IV NR (20:00)
--- NOTE | 2020-01-05 20:30 | NUR ---
IV to left AC leaking. Discontinued, Catheter tip intact, pressure and dressing applied. New IV started to Right Forearm.
--- NOTE | 2020-01-05 23:27 | NUR ---
PT ASSISTED TO BATHROOM AND TO RECLINER. PT VERBALIZED THAT RECLINER FEELS BETTER THAN THE BED AT THIS TIME. LEFT PT LAYING IN RECLINER WITH CALL LIGHT WITHIN REACH.
[2020-01-06] VITALS (8 sets, daily range): BP systolic 133–185; BP diastolic 60–90
[2020-01-06] MEDS: SODIUM CHLORIDE 0.9% 250ML IRRIG IR SCH ×6 (02:45→20:57)
[2020-01-06] MEDS: PIPER-TAZ 3.375 GM 50 ML IV SCH ×5 (03:00→20:57)
[2020-01-06] MEDS: DEXTROSE 5%/0.9% SOD CHL 1,000 ML IV SCH ×2 (03:28→14:00)
[2020-01-06 06:23] LABS: BASOPHILS # (AUTO) 0.1 (0.0-0.1); BASOPHILS % 0.5 % (0.0-1.0); EOSINOPHILS # (AUTO) 0.1 (0.0-0.4); EOSINOPHILS % 0.9 % (0.0-6.0); HEMATOCRIT 30.2 % (34.2-44.1); LYMPHOCYTES # (AUTO) 2.4 (1.0-3.2); LYMPHOCYTES % 16.5 % (18.0-39.1); MEAN CORPUSCULAR HEMOGLOBIN 24.6 pg (28-32); MEAN CORPUSCULAR HGB CONC 29.8 g/dL (31-35); MEAN CORPUSCULAR VOLUME 82.5 fL (81-99); MONOCYTES # (AUTO) 1.2 (0.2-0.8); MONOCYTES % 8.3 % (4.4-11.3); NEUTROPHILS # (AUTO) 10.8 (2.1-6.9); NEUTROPHILS % 73.4 % (38.7-80.0); PLATELET COUNT 297 x10e3/uL (140-360); RED BLOOD COUNT 3.66 x10e6/uL (3.6-5.1); RED CELL DISTRIBUTION WIDTH 15.2 % (11.7-14.4)
[2020-01-06 06:48] LABS: ANION GAP 8.6 mmol/L (8-16); BLOOD UREA NITROGEN 13 mg/dL (7-26); BUN/CREATININE RATIO 15 (6-25); CALCIUM 9.9 mg/dL (8.4-10.2); CARBON DIOXIDE 24 mmol/L (22-29); CHLORIDE 111 mmol/L (98-107); CREATININE, SERUM 0.89 mg/dL (0.57-1.11); EST GLOMERULAR FILTRATION RATE > 60 ML/MIN (60-); GLUCOSE 101 mg/dL (74-118); POTASSIUM 3.6 mmol/L (3.5-5.1); SODIUM 140 mmol/L (136-145)
[2020-01-06] MEDS: PANTOPRAZOLE 40 MG 10ML VIAL IV SCH (09:00)
[2020-01-06] MEDS: MORPHINE SULFATE 1 MG/ML 30ML PCA IV PRN (09:49)
[2020-01-06] MEDS ORDERED: MORPHINE SULFATE 1 MG/ML 30ML PCA IV PRN (14:30)
--- NOTE | 2020-01-06 16:09 | NUR ---
WITH STANDBY ASSIST, PT OOB TO BR, MOM ASSISTING TO CLEAN UP PT PER PT REQUEST, ONLY HER MOM, LINENS CHANGED AGAIN, HOB ELEVATED, CALL STRING WITHIN REACH
--- NOTE | 2020-01-06 18:56 | NUR ---
WALKING ROUNDS PERFORMED, RECEIVED PT LAYING SEMI FOWLERS IN BED, AAOX3, RR EVEN AND NON-LABORED, ON ROOM AIR. NO S/SX OF DISTRESS NOTED. LEFT PT LAYING SEMI FOWLERS IN BED, BED IN LOW LOCKED POSITION, SIDE RAILS UPX2, CALL LIGHT AND PHONE WITHIN REACH. MINUTE CLERK BUTTON WITHIN REACH.
[2020-01-07] VITALS (9 sets, daily range): BP systolic 137–181; BP diastolic 68–86
[2020-01-07] MEDS: PIPER-TAZ 3.375 GM 50 ML IV SCH ×4 (03:20→21:10)
[2020-01-07] MEDS: DEXTROSE 5%/0.9% SOD CHL 1,000 ML IV SCH ×4 (05:50→22:30)
--- NOTE | 2020-01-07 07:15 | NUR ---
Received patient lying in bed with eyes open. Respiration even and unlabored without SOB. Call light in reach.
[2020-01-07] MEDS: PANTOPRAZOLE 40 MG 10ML VIAL IV SCH (09:52)
[2020-01-07] MEDS: HYDROCODONE/APAP 7.5MG-325MG 1 EA TAB PO PRN ×2 (16:22→21:21)
--- NOTE | 2020-01-07 19:10 | NUR ---
Report given to shift superintendent caustic cresylate. Respiration even and unlabored without SOB. Call light in reach.
[2020-01-08] VITALS (7 sets, daily range): BP systolic 142–162; BP diastolic 81–86
[2020-01-08] MEDS: PIPER-TAZ 3.375 GM 50 ML IV SCH ×4 (03:18→20:59)
[2020-01-08] MEDS: HYDROCODONE/APAP 7.5MG-325MG 1 EA TAB PO PRN ×4 (05:00→22:10)
--- NOTE | 2020-01-08 05:19 | NUR ---
Patient refused dressing change.
[2020-01-08] MEDS ORDERED: SODIUM CHLORIDE FLUSH 10 ML SYR INJ PRN (06:15)
--- NOTE | 2020-01-08 06:57 | NUR ---
Received patient lying in bed with eyes closed. Respiration even and unlabored without SOB.
[2020-01-08] MEDS ORDERED: MORPHINE SULFATE INJ 4 MG/ML INJ 1ML IV PRN (08:45)
[2020-01-08] MEDS: PANTOPRAZOLE 40 MG 10ML VIAL IV SCH (08:56)
[2020-01-08 09:52] LABS: BASOPHILS # (AUTO) 0.1 (0.0-0.1); BASOPHILS % 0.5 % (0.0-1.0); EOSINOPHILS # (AUTO) 0.5 (0.0-0.4); EOSINOPHILS % 5.9 % (0.0-6.0); HEMATOCRIT 28.4 % (34.2-44.1); HEMOGLOBIN 8.8 g/dL (12.0-16.0); LYMPHOCYTES # (AUTO) 2.1 (1.0-3.2); LYMPHOCYTES % 23.2 % (18.0-39.1); MEAN CORPUSCULAR HEMOGLOBIN 24.6 pg (28-32); MEAN CORPUSCULAR VOLUME 79.3 fL (81-99); MONOCYTES # (AUTO) 0.6 (0.2-0.8); MONOCYTES % 6.7 % (4.4-11.3); NEUTROPHILS # (AUTO) 5.8 (2.1-6.9); NEUTROPHILS % 63.3 % (38.7-80.0); PLATELET COUNT 335 x10e3/uL (140-360); RED BLOOD COUNT 3.58 x10e6/uL (3.6-5.1); RED CELL DISTRIBUTION WIDTH 14.5 % (11.7-14.4)
[2020-01-08 10:07] LABS: ANION GAP 8.4 mmol/L (8-16); BLOOD UREA NITROGEN 6 mg/dL (7-26); BUN/CREATININE RATIO 9 (6-25); CALCIUM 9.3 mg/dL (8.4-10.2); CARBON DIOXIDE 26 mmol/L (22-29); CHLORIDE 108 mmol/L (98-107); EST GLOMERULAR FILTRATION RATE > 60 ML/MIN (60-); GLUCOSE 96 mg/dL (74-118); POTASSIUM 3.4 mmol/L (3.5-5.1); SODIUM 139 mmol/L (136-145)
[2020-01-08] MEDS ORDERED: ONDANSETRON HCL 4 MG ORAL DISINTEGRATING TAB PO PRN (12:00)
[2020-01-08] MEDS ORDERED: SOD PHOSPHATE/SOD BIPHOSPHATE ENEMA 132 ML BTL PR ONE (14:15)
[2020-01-08] MEDS ORDERED: SOD PHOSPHATE/SOD BIPHOSPHATE ENEMA 132 ML BTL PR SCH (14:30)
--- NOTE | 2020-01-08 19:10 | NUR ---
Report given to cast iron drain pipe layer. Respiration even and unlabored without SOB. Call light in reach.
[2020-01-09] VITALS: BP 157/82
[2020-01-09] MEDS: PIPER-TAZ 3.375 GM 50 ML IV SCH ×2 (03:11→09:30)
[2020-01-09 04:00] VITALS: BP 152/72
[2020-01-09] MEDS: HYDROCODONE/APAP 7.5MG-325MG 1 EA TAB PO PRN ×2 (04:10→09:30)
[2020-01-09 06:05] LABS: BASOPHILS # (AUTO) 0.1 (0.0-0.1); BASOPHILS % 0.6 % (0.0-1.0); EOSINOPHILS # (AUTO) 0.4 (0.0-0.4); EOSINOPHILS % 4.7 % (0.0-6.0); HEMATOCRIT 28.4 % (34.2-44.1); LYMPHOCYTES # (AUTO) 1.9 (1.0-3.2); LYMPHOCYTES % 21.8 % (18.0-39.1); MEAN CORPUSCULAR HEMOGLOBIN 24.6 pg (28-32); MEAN CORPUSCULAR HGB CONC 31.7 g/dL (31-35); MEAN CORPUSCULAR VOLUME 77.6 fL (81-99); MONOCYTES # (AUTO) 0.6 (0.2-0.8); MONOCYTES % 7.2 % (4.4-11.3); NEUTROPHILS # (AUTO) 5.8 (2.1-6.9); NEUTROPHILS % 65.1 % (38.7-80.0); PLATELET COUNT 365 x10e3/uL (140-360); RED BLOOD COUNT 3.66 x10e6/uL (3.6-5.1); RED CELL DISTRIBUTION WIDTH 14.3 % (11.7-14.4)
[2020-01-09 07:22] VITALS: BP 139/76
[2020-01-09] MEDS ORDERED: PANTOPRAZOLE SOD 40 MG TABEC PO SCH (07:30)
[2020-01-09 09:39] VITALS: BP 139/76
[2020-01-09 11:48] VITALS: BP 139/85
[2020-01-09] MEDS ORDERED: NORCO 5-325 TA1 EACH PO (13:03)
[2020-01-09] MEDS ORDERED: SENNA LAXATIVE8.6 MG PO (13:04)
[2020-01-09] MEDS ORDERED: ZOFRAN4 MG PO (13:05)
== END 2020-01-09 13:43 | disposition home or self-care (01) | DRG 331 ==
LOC: ER 12:09 → ERHOLD 16:48 → MED/SURG 23:55
PROVIDERS: ADMIT Internal Medicine; ATTEND Internal Medicine
PROC: 0WJP4ZZ Inspection of Gastrointestinal Tract, Percutaneous Endoscopic Approach (ICD-10-PCS; 2020-01-04)
PROC: 0DTF0ZZ Resection of Right Large Intestine, Open Approach (ICD-10-PCS; principal; 2020-01-04 12:00)
DX: C18.4 Malignant neoplasm of transverse colon (principal); I10 Essential (primary) hypertension; E03.9 Hypothyroidism, unspecified
CPT/HCPCS: 36415; 71046; 74018; 74177; 76705; 80048; 80053; 81001; 82150; 82550; 82553; 82607; 82746; 83036; 83605; 83690; 83735; 83880; 83993; 84100; 84443; 84484; 84702; 85025; 85610; 85651; 85730; 86140; 87040; 88309; 88342; 93005; 96361; 99285; J0330; J1100; J1200; J2001; J2250; J2270; J2405; J2543; J2710; J3010; J7030; J7042; Q9967

== ENCOUNTER 2020-01-11 11:35 | Inpatient (IN) | payer OTHER ==
[~2020-01-11] VITALS: Ht 172.7 cm; Wt 95.5 kg
[~2020-01-11 11:35] MED LIST changes: +NORCO 5-325 TA1 EACH PO; +SENNA LAXATIVE8.6 MG PO; +ZOFRAN4 MG PO
[2020-01-11] MEDS ORDERED: SODIUM CHLORIDE 0.9% 1000ML 1,000 ML IV STA (11:50)
[2020-01-11] MEDS ORDERED: MORPHINE SULFATE INJ 4 MG/ML INJ 1ML IV STA (11:50)
[2020-01-11] MEDS ORDERED: PIPER-TAZ 3.375 GM 50 ML IV STA (11:50)
[2020-01-11] MEDS ORDERED: ONDANSETRON HCL INJ 2MG/ML 2ML 2 MG/ML VIAL IV STA (11:50)
[2020-01-11 12:01] LABS: BASOPHILS # (AUTO) 0.1 (0.0-0.1); BASOPHILS % 0.4 % (0.0-1.0); EOSINOPHILS # (AUTO) 0.2 (0.0-0.4); EOSINOPHILS % 1.8 % (0.0-6.0); HEMATOCRIT 33.2 % (34.2-44.1); HEMOGLOBIN 10.7 g/dL (12.0-16.0); LYMPHOCYTES # (AUTO) 2.1 (1.0-3.2); LYMPHOCYTES % 16.2 % (18.0-39.1); MEAN CORPUSCULAR HEMOGLOBIN 24.7 pg (28-32); MEAN CORPUSCULAR HGB CONC 32.2 g/dL (31-35); MEAN CORPUSCULAR VOLUME 76.5 fL (81-99); MONOCYTES # (AUTO) 0.7 (0.2-0.8); MONOCYTES % 5.3 % (4.4-11.3); NEUTROPHILS # (AUTO) 9.8 (2.1-6.9); NEUTROPHILS % 75.8 % (38.7-80.0); PLATELET COUNT 486 x10e3/uL (140-360); RED BLOOD COUNT 4.34 x10e6/uL (3.6-5.1); RED CELL DISTRIBUTION WIDTH 14.6 % (11.7-14.4)
[2020-01-11] MEDS ORDERED: DIATRIZOATE MEGL/DIATRIZOA SOD 30 ML BTL PO ONE (12:14)
[2020-01-11 12:22] LABS: ALANINE AMINOTRANSFERASE 40 IU/L (0-55); ALBUMIN 3.2 g/dL (3.5-5.0); ALBUMIN/GLOBULIN RATIO 0.7 (0.8-2.0); ALKALINE PHOSPHATASE 132 IU/L (40-150); AMYLASE 26 U/L (25-125); ANION GAP 13.3 mmol/L (8-16); BLOOD UREA NITROGEN 13 mg/dL (7-26); BUN/CREATININE RATIO 15 (6-25); CALCIUM 11.3 mg/dL (8.4-10.2); CARBON DIOXIDE 30 mmol/L (22-29); CHLORIDE 100 mmol/L (98-107); CREATININE, SERUM 0.85 mg/dL (0.57-1.11); EST GLOMERULAR FILTRATION RATE > 60 ML/MIN (60-); GLUCOSE 120 mg/dL (74-118); POTASSIUM 3.3 mmol/L (3.5-5.1); SODIUM 140 mmol/L (136-145)
--- NOTE | 2020-01-11 13:11 | Diagnostic Imaging Report ---
Chest, 1 view, 01/11/2020. History: Nausea and vomiting. Comparison: 01/03/2020. Findings: There is poor inspiration. The cardiomediastinal silhouette and pulmonary vasculature are within normal limits for a portable exam. There is no focal consolidation or pleural effusion. There are no acute osseous or soft tissue abnormalities. Impression: No acute cardiopulmonary abnormality. Signed by: Jorge Jean on 01/11/2020 1:09 PM
[2020-01-11] MEDS ORDERED: IOPAMIDOL 370 MG/ML 200 ML INFUS..BTL INJ ONE (13:51)
[2020-01-11] MEDS ORDERED: SODIUM CHLORIDE 0.9% 50ML 50 ML ONE (13:51)
[2020-01-11 15:27] LABS: LIPASE 42 U/L (8-78)
--- NOTE | 2020-01-11 15:32 | Diagnostic Imaging Report ---
EXAMINATION: CT of the abdomen and pelvis with contrast. TECHNIQUE: Helical CT images of the abdomen and pelvis were performed from the lung bases to the lesser trochanters after the intravenous administration of 100 cc of Isovue 300 and the oral administration of none. Coronal and sagittal reformatted images were obtained.Dose modulation, iterative reconstruction, and/or weight based adjustment of the mA/kV was utilized to reduce the radiation dose to as low as reasonably achievable. COMPARISON: None. CLINICAL HISTORY:Abdominal pain DISCUSSION: ABDOMEN/PELVIS: LOWER THORAX:Unremarkable. HEPATOBILIARY: No focal hepatic lesions. No intra-or extrahepatic biliary ductal dilation. The gallbladder is normal. SPLEEN: No splenomegaly. PANCREAS: No focal masses or ductal dilatation. ADRENALS: No adrenal nodules. KIDNEYS/URETERS: No hydronephrosis, stones, or solid mass lesions. PELVIC ORGANS/BLADDER: The bladder is normal. PERITONEUM/RETROPERITONEUM: Mild reactive free fluid in the right hemiabdomen adjacent to the inflamed bowel. LYMPH NODES: No intra-abdominal, retroperitoneal, pelvic or inguinal lymphadenopathy. VESSELS: The celiac trunk,superior and inferior mesenteric and bilateral renal arteries are patent The portal, superior mesenteric and splenic veins are patent. GI TRACT: Partial right hemicolectomy with intact ileocolonic anastomosis. The jejunum is right of midline. Mildly dilated small bowel in the right hemiabdomen with wall thickening and stool formation. No pneumatosis or free air. BONES AND SOFT TISSUE: No bony destructive lesions. No soft tissue abnormalities. IMPRESSION: Right hemicolectomy intact ileal colonic anastomosis. The jejunum is right of midline. Inflamed proximal small bowel in the right hemiabdomen with thickening, mild dilation and stool formation likely reflective of focal ileus. If symptoms persist/progress recommend follow-up imaging to assess for obstruction. Signed by: Dr. Ernie Douglas M.D. on 01/11/2020 3:30 PM
[2020-01-11] MEDS ORDERED: SODIUM CHLORIDE 0.9% 1000ML 1,000 ML IV SCH (15:41)
[2020-01-11] MEDS ORDERED: MORPHINE SULFATE 2 MG/ML SYR 1ML IV PRN (15:45)
[2020-01-11] MEDS ORDERED: BENZOCAINE/TETRACAINE/BUTAMBEN AERO SPRAY 56 GM CAN TOP ONE (15:45)
[2020-01-11] MEDS ORDERED: DIPHENHYDRAMINE HCL INJ 50 MG/ML VIAL IV ONE (17:15)
[2020-01-11 17:46] LABS: BILIRUBIN,URINE NEGATIVE (NEGATIVE); CLARITY,URINE HAZY (CLEAR); COLOR,URINE YELLOW (YELLOW); KETONES,URINE NEGATIVE (NEGATIVE); LEUKOCYTE ESTERASE ,URINE NEGATIVE (NEGATIVE); NITRITE,URINE NEGATIVE (NEGATIVE); PROTEIN,URINE DIPSTICK NEGATIVE (NEGATIVE); URINE UROBILINOGEN 0.2 mg/dL (0.2 - 1)
[2020-01-11 18:03] LABS: AMORPHOUS SEDIMENT,URINE MODERATE (FEW); BACTERIA,URINE FEW /HPF
[2020-01-11] MEDS: PIPER-TAZ 3.375 GM 50 ML IV SCH ×2 (18:28→23:23)
[2020-01-11] MEDS ORDERED: HYDRALAZINE HCL 20 MG/ML VIAL IV PRN (18:30)
[2020-01-11] MEDS ORDERED: POTASSIUM CHLORIDE 20MEQ/100ML 100 ML IV STA (18:31)
[2020-01-11] MEDS: PANTOPRAZOLE 40 MG 10ML VIAL IV SCH (18:42)
[2020-01-11] MEDS: MORPHINE SULFATE INJ 4 MG/ML INJ 1ML IV PRN ×2 (18:42→23:23)
[2020-01-11] MEDS: ONDANSETRON HCL INJ 2MG/ML 2ML 2 MG/ML VIAL IV PRN ×2 (18:43→23:23)
[2020-01-11] MEDS ORDERED: SODIUM CHLORIDE 0.9% 250ML 250 ML ONE (19:34)
--- NOTE | 2020-01-11 19:48 | NUR ---
16FR NGT INSERTED TO L NARE S DIFFICULTY PER ORDERS. PT TOLERATED S COMPLAINT. NGT PLACEMENT VERIFIED BY AUSCULTATION. NGT CONNECTED TO SUCTION C 900CC GREENISH COLORED FLUID SUCTIONED TO CANISTER. DR COOK INFORMED. NGT REMAINS CONNECTED TO LOW INTERMITTENT, HOB ELEVATED TO 45 DEGREES.
[2020-01-11 19:55] LABS: CREATINE KINASE MB 1.3 ng/mL (0-5.0)
--- NOTE | 2020-01-11 21:36 | NUR ---
RECEIVED PT BY STRETCHER TO ROOM 111. PT IS AAOX3, RR EVEN AND NON-LABORED, ON ROOM AIR. NGT TO (L) NARE CONNECTED TO LIWS. PT ASSISTED TO AMBULATE FROM STRETCHER TO HOSPITAL BED. ORIENTED PT TO [facility]C POLICIES, CALL LIGHT AND PHONE. LEFT PT LAYING SEMI FOWLERS IN BED, BED IN LOW LOCKED POSITION, SIDE RAILS UPX2, CALL LIGHT AND PHONE WITHIN REACH.
[2020-01-11 21:40] VITALS: BP 162/110
[2020-01-11 23:00] VITALS: BP 147/99
[2020-01-11 23:05] VITALS: BP 162/110
[2020-01-11] MEDS: SOD CHL 0.45%/POT CHL 20MEQ 1,000 ML IV SCH (23:23)
[2020-01-11] MEDS: SODIUM CHLORIDE 0.9% 250ML IRRIG IR SCH (23:23)
--- NOTE | 2020-01-11 23:45 | NUR ---
PT REPORTS SHE IS AFRAID THAT SOMETHING WILL SNAG ON HER INCISION SHELLI. APPLIED ABDOMINAL PAD TO INCISION AND SECURED WITH X2 PIECES OF TAPE. SUPPLIED PATIENT WITH MOUTH SWABS FOR DRY MOUTH.
--- NOTE | 2020-01-11 23:50 | Consultation ---
DATE OF CONSULTATION: 01/11/2020 HISTORY OF PRESENT ILLNESS: The patient is a 49-year-old female, who underwent surgery for obstructing tumor in the proximal transverse colon. This was done about 10 days ago. She had been doing well at home and last night developed nausea and vomiting. She says she is still passing flatus and she has vomited multiple times. She came to the emergency room today where CT of the abdomen and pelvis reveals a very dilated stomach with dilated small bowel, some air seen in the colon also. No evidence of anastomotic leak and some postop changes with partial obstruction caused by swelling of the small bowel. The patient has not had any fever. PAST MEDICAL HISTORY: Otherwise unremarkable. History of previous breast abscess. No other medical problems. ALLERGIES: NO KNOWN ALLERGIES. FAMILY HISTORY: Noncontributory. SOCIAL HISTORY: The patient does not smoke cigarettes or drink alcohol. REVIEW OF SYSTEMS: As stated above, otherwise was negative. PHYSICAL EXAMINATION: GENERAL: The patient is awake and alert, in no distress. VITAL SIGNS: At this time are normal. She had hypertension on arrival. HEENT: Sclerae is not icteric. NECK: No masses. LUNGS: Equal breath sounds are clear bilaterally. CARDIAC: Regular rate and rhythm with no murmur. ABDOMEN: Soft. There is midline wound which is intact and clean. There is slight distention. There is no mass. There are no signs of peritonitis. EXTREMITIES: Have no edema. NEUROLOGIC: Grossly intact. LABORATORY DATA: White blood cell count 12.9, hemoglobin 10.7, and hematocrit 33. Chemistries were essentially normal. ASSESSMENT: 49-year-old female recently status post right hemicolectomy for obstructing tumor in the proximal transverse colon. At this point, recommend keeping the patient n.p.o., IV fluids, and nasogastric tube as she has very dilated stomach on imaging. There are no findings that would warrant immediate surgical intervention at this time. Thank you for asking me to see Ms. Jones. MD MEÑO Adames/CARL /[id number]
[2020-01-12] VITALS (8 sets, daily range): BP systolic 113–141; BP diastolic 64–91
[2020-01-12] MEDS: SODIUM CHLORIDE 0.9% 250ML IRRIG IR SCH ×5 (03:13→20:00)
[2020-01-12] MEDS: SOD CHL 0.45%/POT CHL 20MEQ 1,000 ML IV SCH ×2 (04:15→14:15)
[2020-01-12] MEDS: PIPER-TAZ 3.375 GM 50 ML IV SCH ×4 (05:37→23:35)
[2020-01-12 05:58] LABS: BASOPHILS % 0.4 % (0.0-1.0); EOSINOPHILS # (AUTO) 0.4 (0.0-0.4); EOSINOPHILS % 4.3 % (0.0-6.0); HEMATOCRIT 31.2 % (34.2-44.1); HEMOGLOBIN 9.8 g/dL (12.0-16.0); LYMPHOCYTES # (AUTO) 1.8 (1.0-3.2); LYMPHOCYTES % 19.5 % (18.0-39.1); MEAN CORPUSCULAR HEMOGLOBIN 24.6 pg (28-32); MEAN CORPUSCULAR HGB CONC 31.4 g/dL (31-35); MEAN CORPUSCULAR VOLUME 78.2 fL (81-99); MONOCYTES # (AUTO) 0.8 (0.2-0.8); MONOCYTES % 8.9 % (4.4-11.3); NEUTROPHILS # (AUTO) 6.1 (2.1-6.9); NEUTROPHILS % 66.5 % (38.7-80.0); PLATELET COUNT 443 x10e3/uL (140-360); RED BLOOD COUNT 3.99 x10e6/uL (3.6-5.1); RED CELL DISTRIBUTION WIDTH 14.8 % (11.7-14.4)
[2020-01-12] MEDS ORDERED: INFLUENZA VIRUS VAC SPLIT INJ 0.5 ML SYR IM SCH (06:00)
[2020-01-12 06:15] LABS: ALANINE AMINOTRANSFERASE 42 IU/L (0-55); ALBUMIN 2.8 g/dL (3.5-5.0); ALBUMIN/GLOBULIN RATIO 0.8 (0.8-2.0); ALKALINE PHOSPHATASE 112 IU/L (40-150); ANION GAP 12.1 mmol/L (8-16); BLOOD UREA NITROGEN 15 mg/dL (7-26); BUN/CREATININE RATIO 16 (6-25); CALCIUM 10.1 mg/dL (8.4-10.2); CARBON DIOXIDE 30 mmol/L (22-29); CHLORIDE 104 mmol/L (98-107); CREATININE, SERUM 0.93 mg/dL (0.57-1.11); EST GLOMERULAR FILTRATION RATE > 60 ML/MIN (60-); GLUCOSE 94 mg/dL (74-118); POTASSIUM 3.1 mmol/L (3.5-5.1); SODIUM 143 mmol/L (136-145)
[2020-01-12 06:22] LABS: MAGNESIUM 1.7 MG/DL (1.3-2.1); PHOSPHORUS 3.2 MG/DL (2.3-4.7)
[2020-01-12 06:45] LABS: CREATINE KINASE MB 0.8 ng/mL (0-5.0)
[2020-01-12] MEDS: PANTOPRAZOLE 40 MG 10ML VIAL IV SCH ×2 (09:13→16:23)
[2020-01-12] MEDS ORDERED: CHLORASEPTIC SPRAY 177 ML BTL MM PRN (09:15)
[2020-01-12] MEDS ORDERED: MAGNESIUM SULFATE 2GM/50ML IV NR (14:00)
[2020-01-12] MEDS ORDERED: POTASSIUM CHLORIDE 20MEQ/100ML 100 ML IV NR (14:00)
[2020-01-12] MEDS: ONDANSETRON HCL INJ 2MG/ML 2ML 2 MG/ML VIAL IV PRN (16:45)
[2020-01-12] MEDS: MORPHINE SULFATE INJ 4 MG/ML INJ 1ML IV PRN ×2 (16:46→23:28)
--- NOTE | 2020-01-12 17:13 | NUR ---
Patient c/o burning to left arm, slow infusion of Mg and K+, tolerating slowly, NG tube in place and draining, call light within reach, will monitor.
[2020-01-12] MEDS ORDERED: POTASSIUM CHLORIDE 60 MEQ in SODIUM CHLORIDE 0.45% 1,000 ML IV ONE (19:00)
--- NOTE | 2020-01-12 19:18 | NUR ---
REPORT RECEIVED FROM DAY RN. PT DENIES PAIN. RESPIRATIONS EVEN AND UNLABORED. N/G TO WALL SUCTION. N/G OUTPUT GREEN IN COLOR. TELE ON. SHELLI MIDLINE INCISION DRY AND INTACT. IV LEFT AC 20 G SLIGHTLY PUFFY.1/2 NS WITH 60 MEQ KCL AT 100 ML/HR.PT NPO EXCEPT FOR ICE CHIPS. CALL LIGHT WITHIN REACH. RESTING IN BED . BED IN LOW POSITION. PT VERBALIZING HOW HUNGRY SHE IS.
[2020-01-13] VITALS (8 sets, daily range): BP systolic 121–155; BP diastolic 80–102
[2020-01-13] MEDS: SOD CHL 0.45%/POT CHL 20MEQ 1,000 ML IV SCH ×3 (00:15→23:54)
[2020-01-13] MEDS: SODIUM CHLORIDE 0.9% 250ML IRRIG IR SCH ×5 (04:00→16:30)
[2020-01-13] MEDS: PIPER-TAZ 3.375 GM 50 ML IV SCH ×3 (06:39→17:08)
[2020-01-13 07:20] LABS: ANION GAP 11.5 mmol/L (8-16); BLOOD UREA NITROGEN 15 mg/dL (7-26); BUN/CREATININE RATIO 19 (6-25); CARBON DIOXIDE 28 mmol/L (22-29); CHLORIDE 107 mmol/L (98-107); CREATININE, SERUM 0.79 mg/dL (0.57-1.11); EST GLOMERULAR FILTRATION RATE > 60 ML/MIN (60-); GLUCOSE 73 mg/dL (74-118); POTASSIUM 3.5 mmol/L (3.5-5.1); SODIUM 143 mmol/L (136-145)
[2020-01-13 07:42] LABS: MAGNESIUM 1.9 MG/DL (1.3-2.1); PHOSPHORUS 2.4 MG/DL (2.3-4.7)
--- NOTE | 2020-01-13 09:43 | NUR ---
Educated on IMM. Verbalized understanding and signed. Copy to patient and original placed on chart.
[2020-01-13] MEDS: PANTOPRAZOLE 40 MG 10ML VIAL IV SCH ×2 (09:48→17:08)
[2020-01-13] MEDS ORDERED: FUROSEMIDE INJ 10 MG/ML 4 ML VIAL IV ONE (10:45)
--- NOTE | 2020-01-13 13:50 | Diagnostic Imaging Report ---
Exam: KUB - 2 views Clinical History: Small bowel obstruction. Comparison: CT Abdomen/Pelvis 01/13/2020. Findings: Mildly dilated small bowel loop in the right upper quadrant, measuring up to 3.5 cm. Air is seen in the rectum. Anastomotic sutures overlie the right upper quadrant. No evidence of free intraperitoneal air. No evidence of abnormal calcification. No acute bony abnormality. Surgical jimena overlie the right hemiabdomen. Impression: Mildly dilated small bowel loop in the right upper quadrant, measuring up to 3.5 cm. This corresponds to same location as prior CT. This may represent focal ileus however follow-up KUB is recommended to assess for partial small bowel obstruction. Signed by: Dr. Jignesh Pickett MD on 01/13/2020 1:47 PM
[2020-01-13] MEDS: ONDANSETRON HCL INJ 2MG/ML 2ML 2 MG/ML VIAL IV PRN (15:10)
[2020-01-13] MEDS: MORPHINE SULFATE INJ 4 MG/ML INJ 1ML IV PRN ×2 (15:10→21:11)
[2020-01-13] MEDS: ENOXAPARIN SOD INJ 40 MG/0.4 ML SYR SC SCH (17:08)
--- NOTE | 2020-01-13 18:16 | NUR ---
pt remains stable. ng tube clamped. tolerating clear liquids ok.
--- NOTE | 2020-01-13 19:00 | NUR ---
per MD if pt tolerated diet and no N/V, remove ng tube. tube now dc, intact.
--- NOTE | 2020-01-13 19:15 | NUR ---
REPORT RECEIVED FROM DAY RN. PT IS ALERT AND ORIENTED X3. 20 G PIV IN LEFT UPPER ARM- SITE HEALHY. RESPIRATIONS EVEN AND UNLABOERED.TELE ON. DENIES PAIN. PT ASKING WHEN SHE WILL GET SHELLI - ABDOMINAL INCISION - OUT. N/G D/C BY DAY RN. PT TOLERATING PO WELL. VOIDING WITHOUT DIFFICULTY. CALL LIGHT WITHIN REACH. BED LOCKED AND IN LOW POSITION.
[2020-01-14] VITALS (8 sets, daily range): BP systolic 127–163; BP diastolic 62–87
[2020-01-14] MEDS: PIPER-TAZ 3.375 GM 50 ML IV SCH ×4 (00:36→17:48)
[2020-01-14] MEDS: ONDANSETRON HCL INJ 2MG/ML 2ML 2 MG/ML VIAL IV PRN ×2 (05:44→14:36)
[2020-01-14] MEDS: MORPHINE SULFATE INJ 4 MG/ML INJ 1ML IV PRN ×2 (05:45→14:36)
--- NOTE | 2020-01-14 05:55 | NUR ---
iv d/c in left upper arm iv painful when flush.pressure dressing to area. iv catheter d/c with cathter intact.pt tolerated procedure well. pt had 20 g iv started in rt hand. Zofan and Morphine given for nausea and pain.
[2020-01-14 06:49] LABS: BASOPHILS # (AUTO) 0.1 (0.0-0.1); BASOPHILS % 0.6 % (0.0-1.0); EOSINOPHILS # (AUTO) 0.3 (0.0-0.4); EOSINOPHILS % 3.5 % (0.0-6.0); HEMATOCRIT 29.9 % (34.2-44.1); HEMOGLOBIN 9.2 g/dL (12.0-16.0); LYMPHOCYTES # (AUTO) 2.1 (1.0-3.2); LYMPHOCYTES % 26.6 % (18.0-39.1); MEAN CORPUSCULAR HEMOGLOBIN 24.2 pg (28-32); MEAN CORPUSCULAR HGB CONC 30.8 g/dL (31-35); MEAN CORPUSCULAR VOLUME 78.7 fL (81-99); MONOCYTES # (AUTO) 0.6 (0.2-0.8); MONOCYTES % 7.9 % (4.4-11.3); NEUTROPHILS # (AUTO) 4.9 (2.1-6.9); NEUTROPHILS % 60.9 % (38.7-80.0); PLATELET COUNT 387 x10e3/uL (140-360); RED CELL DISTRIBUTION WIDTH 14.1 % (11.7-14.4)
[2020-01-14 07:13] LABS: ANION GAP 12.2 mmol/L (8-16); BLOOD UREA NITROGEN 13 mg/dL (7-26); BUN/CREATININE RATIO 15 (6-25); CARBON DIOXIDE 28 mmol/L (22-29); CHLORIDE 105 mmol/L (98-107); CREATININE, SERUM 0.84 mg/dL (0.57-1.11); EST GLOMERULAR FILTRATION RATE > 60 ML/MIN (60-); GLUCOSE 85 mg/dL (74-118); POTASSIUM 3.2 mmol/L (3.5-5.1); SODIUM 142 mmol/L (136-145)
[2020-01-14 07:42] LABS: FERRITIN 55.99 ng/mL (4.63-204.00)
[2020-01-14] MEDS: PANTOPRAZOLE 40 MG 10ML VIAL IV SCH ×2 (08:24→21:21)
--- NOTE | 2020-01-14 08:29 | NUR ---
MD SAMS INTO SEE PT,DISCUSSED POC, WITH STANDBY ASSIST ,PT OOB TO BATHROOM, CALL STRING WITHIN REACH
--- NOTE | 2020-01-14 09:30 | NUR ---
WHEELED OFF UNIT VIA WC FOR ABD XRAY, NO CHANGE IN CONDITION
--- NOTE | 2020-01-14 10:10 | NUR ---
BACK IN ROOM FROM ABD XRAY
[2020-01-14] MEDS: POTASSIUM CHLORIDE 10MEQ EA PO SCH ×3 (10:21→18:28)
--- NOTE | 2020-01-14 10:29 | Diagnostic Imaging Report ---
EXAM: Abdomen Radiograph 1 View(s) INDICATION: ^sbo ^[id number] ^[id number] COMPARISON: 01/13/2020 FINDINGS: The bowel gas pattern is nonspecific. Prominent formed stool within the colon. No discrete free intraperitoneal air is identified. No acute osseous abnormality. No abnormal soft tissue calcification. Mild multilevel lumbar spine degenerative change. Midline laparotomy surgical clips. IMPRESSION: Nonspecific bowel gas pattern. The previously seen single dilated loop of right upper quadrant small bowel is no longer discretely identified. Signed by: Jared Sprague MD on 01/14/2020 10:26 AM
[2020-01-14] MEDS: SOD CHL 0.45%/POT CHL 20MEQ 1,000 ML IV SCH (13:12)
--- NOTE | 2020-01-14 14:39 | NUR ---
PT COMPLAINING OF ITCHING TO HAND AFTER DILUTED IV MORPHINE AND DILUTED IV ZOFRAN ADMINISTERED, TELEPHONED MD SAMS FOR CHANGE OF MEDICATION AND TO MAKE AWARE OF ITCHING, AWAITING CALL BACK
--- NOTE | 2020-01-14 15:00 | NUR ---
PT REPORTS NO ITCHING AT THIS TIME,
--- NOTE | 2020-01-14 17:23 | NUR ---
MD MOORE INTO SEE PT, DISCUSSED POC, PT DECIDED AFTER DISCUSSION TO START PO CHEMO NOT IV, TELEPHONED MD SAMS TO MAKE AWARE OF DECISION, STATES TO CANCEL ORDER
[2020-01-14] MEDS ORDERED: IRON SUCROSE 200 MG in SODIUM CHLORIDE 0.9% 100 ML 100 ML IV SCH (17:30)
[2020-01-14] MEDS: ENOXAPARIN SOD INJ 40 MG/0.4 ML SYR SC SCH (17:48)
[2020-01-14] MEDS ORDERED: CITRATE OF MAGNESIA 300ML BOTTLE PO NR ×2 (18:15→21:15)
[2020-01-14] MEDS: HYDROCODONE/APAP 5MG-325MG TAB PO PRN (18:28)
--- NOTE | 2020-01-14 19:26 | NUR ---
Received bedside report from day nurse. Patient resting in bed, no s/s of distress at this time. All safety measures in place. Will continue to monitor.
[2020-01-14] MEDS: IRON SUCROSE 200 MG in SODIUM CHLORIDE 0.9% 100 ML 100 ML IV SCH (21:21)
[2020-01-15] VITALS (8 sets, daily range): BP systolic 107–142; BP diastolic 59–96
[2020-01-15] MEDS: PIPER-TAZ 3.375 GM 50 ML IV SCH ×4 (00:01→19:20)
[2020-01-15] MEDS: HYDROCODONE/APAP 5MG-325MG TAB PO PRN ×4 (00:16→17:58)
[2020-01-15] MEDS: SOD CHL 0.45%/POT CHL 20MEQ 1,000 ML IV SCH (02:07)
[2020-01-15] MEDS: MORPHINE SULFATE INJ 4 MG/ML INJ 1ML IV PRN (02:13)
[2020-01-15] MEDS: ONDANSETRON HCL INJ 2MG/ML 2ML 2 MG/ML VIAL IV PRN ×3 (02:13→23:10)
[2020-01-15 06:20] LABS: BASOPHILS # (AUTO) 0.1 (0.0-0.1); BASOPHILS % 0.7 % (0.0-1.0); EOSINOPHILS # (AUTO) 0.3 (0.0-0.4); EOSINOPHILS % 3.4 % (0.0-6.0); HEMATOCRIT 29.2 % (34.2-44.1); LYMPHOCYTES # (AUTO) 2.6 (1.0-3.2); LYMPHOCYTES % 31.1 % (18.0-39.1); MEAN CORPUSCULAR HEMOGLOBIN 24.4 pg (28-32); MEAN CORPUSCULAR HGB CONC 30.8 g/dL (31-35); MEAN CORPUSCULAR VOLUME 79.1 fL (81-99); MONOCYTES # (AUTO) 0.6 (0.2-0.8); MONOCYTES % 7.4 % (4.4-11.3); NEUTROPHILS # (AUTO) 4.7 (2.1-6.9); PLATELET COUNT 431 x10e3/uL (140-360); RED BLOOD COUNT 3.69 x10e6/uL (3.6-5.1); RED CELL DISTRIBUTION WIDTH 14.3 % (11.7-14.4)
[2020-01-15 06:43] LABS: ANION GAP 10.4 mmol/L (8-16); BLOOD UREA NITROGEN 9 mg/dL (7-26); BUN/CREATININE RATIO 12 (6-25); CALCIUM 9.8 mg/dL (8.4-10.2); CARBON DIOXIDE 24 mmol/L (22-29); CHLORIDE 111 mmol/L (98-107); CREATININE, SERUM 0.76 mg/dL (0.57-1.11); EST GLOMERULAR FILTRATION RATE > 60 ML/MIN (60-); GLUCOSE 89 mg/dL (74-118); POTASSIUM 4.4 mmol/L (3.5-5.1); SODIUM 141 mmol/L (136-145)
--- NOTE | 2020-01-15 07:00 | NUR ---
bedside report received pt in stable condition, denies pain at this time, midline jimena intact, r hand 20g no ss of infiltration noted, no other co vocied call light in reach will continue to monitor
--- NOTE | 2020-01-15 07:02 | NUR ---
Bedside report given to day nurse. Patient resting in ed, no s/s of distress at this time. All safety measures in place.
[2020-01-15 07:20] LABS: MAGNESIUM 1.7 MG/DL (1.3-2.1); PHOSPHORUS 2.3 MG/DL (2.3-4.7)
[2020-01-15] MEDS ORDERED: MAGNESIUM SULFATE 2GM/50ML IV ONE (08:30)
[2020-01-15] MEDS ORDERED: MAGNESIUM SULFATE 2GM/50ML 50 ML IV ONE (09:15)
[2020-01-15] MEDS: PANTOPRAZOLE 40 MG 10ML VIAL IV SCH ×2 (10:05→21:03)
[2020-01-15] MEDS ORDERED: POTASSIUM PHOSPHATE 20 MM in SODIUM CHLORIDE 0.9% 250ML 250 ML IV ONE (11:15)
--- NOTE | 2020-01-15 15:30 | NUR ---
26 SHELLI REMOVED PER ORDERED, PT TOLERATED WELL. WILL CONTINUE TO MONITOR
[2020-01-15] MEDS: ENOXAPARIN SOD INJ 40 MG/0.4 ML SYR SC SCH (16:11)
--- NOTE | 2020-01-15 19:05 | NUR ---
RECEIVED BEDSIDE SHIFT REPORT FROM PREVIOUS NURSE. CALL LIGHT WITHIN REACH. PATIENT IN BED. MOM AT BEDSIDE.
[2020-01-15] MEDS: IRON SUCROSE 200 MG in SODIUM CHLORIDE 0.9% 100 ML 100 ML IV SCH (21:03)
[2020-01-16] VITALS (8 sets, daily range): BP systolic 111–156; BP diastolic 74–99
[2020-01-16] MEDS: PIPER-TAZ 3.375 GM 50 ML IV SCH ×5 (06:02→23:35)
[2020-01-16] MEDS: SOD CHL 0.45%/POT CHL 20MEQ 1,000 ML IV SCH (06:28)
[2020-01-16 06:37] LABS: ANION GAP 8.4 mmol/L (8-16); BLOOD UREA NITROGEN 6 mg/dL (7-26); BUN/CREATININE RATIO 7 (6-25); CALCIUM 10.4 mg/dL (8.4-10.2); CARBON DIOXIDE 26 mmol/L (22-29); CHLORIDE 111 mmol/L (98-107); CREATININE, SERUM 0.82 mg/dL (0.57-1.11); EST GLOMERULAR FILTRATION RATE > 60 ML/MIN (60-); GLUCOSE 84 mg/dL (74-118); POTASSIUM 4.4 mmol/L (3.5-5.1); SODIUM 141 mmol/L (136-145)
--- NOTE | 2020-01-16 07:10 | NUR ---
GAVE BEDSIDE SHIFT REPORT TO ONCOMING NURSE. CALL LIGHT WITHIN REACH. PATIENT IN BED
[2020-01-16 07:32] LABS: PHOSPHORUS 2.5 MG/DL (2.3-4.7)
[2020-01-16] MEDS: PANTOPRAZOLE 40 MG 10ML VIAL IV SCH ×2 (09:37→20:04)
[2020-01-16] MEDS ORDERED: DIATRIZOATE MEGL/DIATRIZOA SOD 30 ML BTL PO ONE (09:44)
--- NOTE | 2020-01-16 12:24 | Diagnostic Imaging Report ---
EXAM: CT Abdomen and Pelvis WITHOUT intravenous contrast INDICATION: Abdominal pain COMPARISON: None. TECHNIQUE: Abdomen and pelvis were scanned utilizing a multidetector helical scanner from the lung base to the pubic symphysis without administration of IV contrast. Coronal and sagittal reformations were obtained. IV CONTRAST: None ORAL CONTRAST: Gastrografin COMPLICATIONS: None RADIATION DOSE: Total DLP: 719 mGy*cm Dose modulation, iterative reconstruction, and/or weight based adjustment of the mA/kV was utilized to reduce the radiation dose to as low as reasonably achievable. FINDINGS: LOWER THORAX: Normal. HEPATOBILIARY: No focal hepatic lesions. No biliary ductal dilatation. The gallbladder appears unremarkable. SPLEEN: No splenomegaly. PANCREAS: No focal masses or ductal dilatation. ADRENALS: No adrenal nodules. KIDNEYS/URETERS: No hydronephrosis, stones, or solid mass lesions. PELVIC ORGANS/BLADDER: Unremarkable. PERITONEUM / RETROPERITONEUM: No free air or fluid. LYMPH NODES: No lymphadenopathy. VESSELS: Unremarkable. GI TRACT: Status post right colectomy with right abdominal anastomosis. Mildly distended loop of small bowel in the right lower quadrant measures up to 3.1 cm maximum diameter. BONES AND SOFT TISSUES: No acute osseous injury. Midline lower abdominal surgical scar. Tiny pocket of subcutaneous air in the right anterior lower abdominal wall, possibly related to injection. No associated focal fluid collection. IMPRESSION: Status post right colectomy with right lower abdominal anastomosis. Loops of small bowel are mildly dilated up to 3.1 cm proximal to the anastomosis, possibly presenting ileus. No definite evidence of high-grade obstruction. There is air throughout the colon and rectum. No free air. Signed by: Lois Rayo MD on 01/16/2020 12:21 PM
[2020-01-16] MEDS: ONDANSETRON HCL INJ 2MG/ML 2ML 2 MG/ML VIAL IV PRN ×2 (13:45→20:09)
--- NOTE | 2020-01-16 15:40 | NUR ---
DR SAMS AT BEDSIDE INFORMED OF CT RESULTS NO NEW ORDERS AT THIS TIME
[2020-01-16] MEDS: HYDROCODONE/APAP 5MG-325MG TAB PO PRN (15:46)
--- NOTE | 2020-01-16 15:53 | NUR ---
Nutrition Screen Note RD Recommendation for Physician: -Continue regular diet per MD. Plan of Care: RD following, monitoring for tolerance and adequacy. Ensure Enlive BID as tolerated. Nutrition reason for involvement: (LOS) Primary Diagnose(s): colon cancer PMH: Otherwise unremarkable. History of previous breast abscess. No other medical problems. Ht: 68 in Wt: 210 lb BMI: 32.0 kg/m2 IBW: 140lb RD Assessment: (01/15) 49 YOF admitted for colon cancer. Pt underwent surgery for an obstructing tumor in the proximal transverse colon 10 days ago. The pt reports her appetite has been so so. She did report having some weight loss after her surgery, per EMR the pt was 213 lbs in Dec, suggesting minor weight loss. Pt reported N/V. Encouraged ONS as tolerated to provide her with more calories and protein to prevent further unintentional weight loss, she reported she may want it at her next f/u. She denied chewing or swallowing issues as well as any food allergies. Chart reviewed. Labs and meds reviewed. Pt is consuming 50-100% of her meals per meal assessment. Will continue to monitor. Current Diet: regular diet Malnutrition Evaluation (01/15) The patient does not meet criteria for a specified degree of malnutrition at this time. Will re-evaluate at follow-up as appropriate. Weight loss: Mild weight loss. Fat loss: none Muscle loss: none Diet Education Needs Assessment: Diet education not indicated. Diet Adequacy: Meeting calorie needs, Meeting protein needs Nutrition Care Level: low Signed: Chaya Mak, RD, LD
[2020-01-16] MEDS: ENOXAPARIN SOD INJ 40 MG/0.4 ML SYR SC SCH (17:27)
--- NOTE | 2020-01-16 19:00 | NUR ---
RECEIVED REPORT FROM PREVIOUS NURSE. CALL LIGHT WITHIN REACH. PATIENT IN BED.
[2020-01-16] MEDS: IRON SUCROSE 200 MG in SODIUM CHLORIDE 0.9% 100 ML 100 ML IV SCH (20:04)
[2020-01-16] MEDS: MORPHINE SULFATE INJ 4 MG/ML INJ 1ML IV PRN (20:09)
[2020-01-17] VITALS (8 sets, daily range): BP systolic 111–150; BP diastolic 65–96
[2020-01-17] MEDS: MORPHINE SULFATE INJ 4 MG/ML INJ 1ML IV PRN ×2 (05:13→21:33)
[2020-01-17] MEDS: ONDANSETRON HCL INJ 2MG/ML 2ML 2 MG/ML VIAL IV PRN (05:13)
[2020-01-17] MEDS: PIPER-TAZ 3.375 GM 50 ML IV SCH (05:13)
--- NOTE | 2020-01-17 07:14 | NUR ---
Received change of shift report from PM nurse. Walking rounds completed.
--- NOTE | 2020-01-17 07:19 | NUR ---
GAVE REPORT TO ONCOMING NURSE. CALL LIGHT WITHIN REACH. PATIENT IN BED ASLEEP
[2020-01-17 09:13] LABS: ANION GAP 9.6 mmol/L (8-16); BLOOD UREA NITROGEN 7 mg/dL (7-26); BUN/CREATININE RATIO 7 (6-25); CALCIUM 10.5 mg/dL (8.4-10.2); CARBON DIOXIDE 25 mmol/L (22-29); CHLORIDE 108 mmol/L (98-107); CREATININE, SERUM 0.96 mg/dL (0.57-1.11); EST GLOMERULAR FILTRATION RATE > 60 ML/MIN (60-); GLUCOSE 117 mg/dL (74-118); POTASSIUM 4.6 mmol/L (3.5-5.1); SODIUM 138 mmol/L (136-145)
[2020-01-17] MEDS: SOD CHL 0.45%/POT CHL 20MEQ 1,000 ML IV SCH ×3 (10:08→20:44)
[2020-01-17] MEDS: PANTOPRAZOLE 40 MG 10ML VIAL IV SCH (10:08)
[2020-01-17] MEDS: METOCLOPRAMIDE HCL 10 MG/2ML VIAL IV SCH ×3 (11:30→20:56)
[2020-01-17] MEDS: HYDROCODONE/APAP 5MG-325MG TAB PO PRN ×2 (15:11→21:25)
[2020-01-17] MEDS: ENOXAPARIN SOD INJ 40 MG/0.4 ML SYR SC SCH (17:20)
--- NOTE | 2020-01-17 19:13 | NUR ---
RECEIVED REPORT FROM PREVIOUS NURSE. CALL LIGHT WITHIN REACH. PATIENT IN BED ASLEEP
[2020-01-17] MEDS: IRON SUCROSE 200 MG in SODIUM CHLORIDE 0.9% 100 ML 100 ML IV SCH (20:56)
[2020-01-18] VITALS: BP 102/72
--- NOTE | 2020-01-18 03:40 | NUR ---
HOURLY ROUNDING PERFORMED. CALL LIGHT WITHIN REACH. PATIENT ASLEEP IN BED.
[2020-01-18 04:00] VITALS: BP 119/97
[2020-01-18 05:24] LABS: ANION GAP 12.4 mmol/L (8-16); BLOOD UREA NITROGEN 9 mg/dL (7-26); BUN/CREATININE RATIO 11 (6-25); CALCIUM 10.5 mg/dL (8.4-10.2); CARBON DIOXIDE 24 mmol/L (22-29); CHLORIDE 109 mmol/L (98-107); CREATININE, SERUM 0.82 mg/dL (0.57-1.11); EST GLOMERULAR FILTRATION RATE > 60 ML/MIN (60-); GLUCOSE 87 mg/dL (74-118); POTASSIUM 4.4 mmol/L (3.5-5.1); SODIUM 141 mmol/L (136-145)
[2020-01-18] MEDS: PANTOPRAZOLE 40 MG 10ML VIAL IV SCH (05:55)
--- NOTE | 2020-01-18 07:02 | NUR ---
GAVE BEDSIDE SHIFT REPORT TO ONCOMING NURSE. CALL LIGHT WITHIN REACH. PATIENT ASLEEP IN BED.
--- NOTE | 2020-01-18 07:30 | NUR ---
Received patient , alert and responsive, c/o abdominal pain, rounds completed, call light within reach and safety maintained.
[2020-01-18] MEDS: METOCLOPRAMIDE HCL 10 MG/2ML VIAL IV SCH (07:59)
[2020-01-18] MEDS: ONDANSETRON HCL INJ 2MG/ML 2ML 2 MG/ML VIAL IV PRN (07:59)
[2020-01-18] MEDS: HYDROCODONE/APAP 5MG-325MG TAB PO PRN (07:59)
[2020-01-18 08:00] VITALS: BP 136/91
[2020-01-18] MEDS: MORPHINE SULFATE INJ 4 MG/ML INJ 1ML IV PRN (08:03)
--- NOTE | 2020-01-18 08:17 | NUR ---
Medicated for abdl pain, no nausea, no vomiting, will monitor.
[2020-01-18 08:25] VITALS: BP 136/91
[2020-01-18] MEDS: SOD CHL 0.45%/POT CHL 20MEQ 1,000 ML IV SCH (08:28)
[2020-01-18] MEDS ORDERED: REGLAN5 MG PO (09:25)
[2020-01-18] MEDS ORDERED: ZOFRAN4 MG PO (09:26)
[2020-01-18] MEDS ORDERED: ZOFRAN8 MG (09:26)
--- NOTE | 2020-01-18 15:17 | Discharge Summary ---
CONSULTANTS: 1. Bj Medina MD. 2. Carlee Melendrez MD. FINAL DIAGNOSES: 1. Postoperative ileus and small-bowel obstruction resolved with conservative measure with NG tube and symptom control. 2. Status post recent large bowel obstruction secondary to transverse colon tumor, a moderately differentiated adenocarcinoma, status post diagnostic laparoscopy and open right hemicolectomy along with right colon resection. 3. Status post nausea and vomiting, resolved. 4. Dehydration, resolved. 5. Anemia with post iron infusion. SUMMARY: The patient is a 49-year-old female, who underwent procedures on January 04, 2020. 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 The patient has seen by Dr. Carlee Melendrez and will need adjuvant chemotherapy orally. No Port-A-Cath was placed. The patient doing better. She was subsequently discharged home and then subsequently came back in with abdominal distention, found to be ileus and early small-bowel obstruction. The patient did receive NG tube. She responded well. The patient was started on oral intake, who then became little bit bloated and ileus was not as intense as previously. Conservative measure including her cut back on the oral intake, increase in activity, ambulation and symptomatic control and the patient is doing much better now. She is stable. Abdomen is soft. No bloating. She was discharged home with Reglan 10 mg before meal for 15 days and then also Zofran ODT sublingual as needed for nausea and vomiting. The patient was stable, discharged home. Follow up with Dr. Carlee Melendrez and Dr. Bj Medina in approximately 1 to 2 weeks and with tn in approximately one week or primary care physician for continue to monitor closely. The patient is otherwise stable, discharged home today. MD ANNA Light/CARL /[id number]
== END 2020-01-18 10:55 | disposition home or self-care (01) | DRG 389 ==
LOC: ER 11:35 → INTOOBSV 15:47 → ERHOLD 15:47 → OBSVTOIN 15:47 → MED/SURG 21:36
PROVIDERS: ADMIT Internal Medicine; ATTEND Internal Medicine
DX: K91.31 Postprocedural partial intestinal obstruction (principal); C18.4 Malignant neoplasm of transverse colon; R78.81 Bacteremia; I10 Essential (primary) hypertension; E03.9 Hypothyroidism, unspecified; E66.9 Obesity, unspecified; Z68.32 Body mass index [BMI] 32.0-32.9, adult; Z90.49 Acquired absence of other specified parts of digestive tract; E86.0 Dehydration; E87.6 Hypokalemia; Z80.42 Family history of malignant neoplasm of prostate; Z80.9 Family history of malignant neoplasm, unspecified; D50.9 Iron deficiency anemia, unspecified
CPT/HCPCS: 36415; 71045; 74018; 74176; 74177; 80048; 80053; 81001; 82150; 82378; 82550; 82553; 82728; 83540; 83605; 83690; 83735; 84100; 84466; 84484; 84702; 85025; 87040; 87071; 87086; 87205; 99285; J0360; J1200; J1650; J1756; J1940; J2270; J2405; J2543; J2765; J3475; J3480; J7030; J7050; Q9967

== ENCOUNTER → 2020-03-11 | Day surgery (SDC) | payer OTHER ==
[2020-03-07 08:29] LABS: BASOPHILS # (AUTO) 0.1 (0.0-0.1); EOSINOPHILS # (AUTO) 0.3 (0.0-0.4); EOSINOPHILS % 3.5 % (0.0-6.0); HEMATOCRIT 38.5 % (34.2-44.1); HEMOGLOBIN 12.3 g/dL (12.0-16.0); LYMPHOCYTES # (AUTO) 3.4 (1.0-3.2); LYMPHOCYTES % 39.1 % (18.0-39.1); MEAN CORPUSCULAR HEMOGLOBIN 26.6 pg (28-32); MEAN CORPUSCULAR HGB CONC 31.9 g/dL (31-35); MEAN CORPUSCULAR VOLUME 83.3 fL (81-99); MONOCYTES # (AUTO) 0.6 (0.2-0.8); MONOCYTES % 6.6 % (4.4-11.3); NEUTROPHILS # (AUTO) 4.2 (2.1-6.9); NEUTROPHILS % 49.2 % (38.7-80.0); PLATELET COUNT 305 x10e3/uL (140-360); RED BLOOD COUNT 4.62 x10e6/uL (3.6-5.1); RED CELL DISTRIBUTION WIDTH 16.1 % (11.7-14.4)
[~2020-03-11] MED LIST changes: +CEFAZOLIN SOD 1 GM/NS 50ML 100 ML IV ONE; +DEXAMETHASONE SOD PHOS INJ 4 MG/ML VIAL ONE; +ETOMIDATE 2 MG/ML 10 ML INJ IV ONE; +FENTANYL CITRATE/PF 100MCG/2 ML INJ ONE; +HEPARIN SOD (PORCINE) 1000 UNIT/ML SDV ONE; +LEVOTHYROXINE25 MCG PO; +LIDOCAINE HCL 1% 30ML-PF VIAL ONE; +LIDOCAINE HCL 2% LOCAL INJ 5 ML SDV VIAL INJ ONE; +MIDAZOLAM HCL 2 MG/2 ML VIAL ONE; +ONDANSETRON HCL INJ 2MG/ML 2ML 2 MG/ML VIAL ONE; +REGLAN5 MG PO; +SEVOFLURANE INHAL SOLN 250 ML PEN BTL ONE; +SODIUM CHLORIDE 0.9% 100 ML ONE; +ZOFRAN8 MG
--- NOTE | 2020-03-11 12:22 | Diagnostic Imaging Report ---
EXAM: CHEST SINGLE (PORTABLE) DATE: 03/11/2020 11:55 AM INDICATION: Status post line placement COMPARISON: 01/11/2020 FINDINGS: There has been interval placement of a left subclavian chest port with catheter tip terminating appropriately over the cavoatrial junction. The trachea is midline. The lungs are symmetrically expanded without evidence for large focal consolidation, pneumothorax, or significant pleural effusion. The cardiomediastinal silhouette is within normal limits. No acute osseous abnormality is identified. IMPRESSION: No evidence for pneumothorax or other acute cardiopulmonary process status post left subclavian chest port insertion. Signed by: Dr. Rich England MD on 03/11/2020 12:19 PM
[2020-03-11 12:30] VITALS: BP 158/87
--- NOTE | 2020-03-11 19:06 | Operative Report ---
DATE OF PROCEDURE: 03/11/2020 SURGEON: Bj Medina MD PREOPERATIVE DIAGNOSIS: Carcinoma of the colon. POSTOPERATIVE DIAGNOSIS: Carcinoma of the colon. PROCEDURE: Placement of left subclavian vein subcutaneous venous access port. CLAIMS VICE PRESIDENT: None. ANESTHESIA: General. INDICATIONS AND FINDINGS: A 49-year-old female, who has carcinoma of the colon and has been treated with chemotherapy. At Surgery, there were no abnormalities in area of the port placement. Blood aspirated freely from the port. At the end of the procedure, tip of the catheter was seen to be in the superior vena cava. TECHNIQUE: After adequate general anesthesia, the patient in supine position, the subclavian areas were prepped and draped in a sterile fashion with ChloraPrep solution. Left subclavian vein was aspirated. J-wire introduced, passed easily without resistance. Position of the wire in the superior vena cava was confirmed with fluoroscopy. Incision was then made in the deltopectoral groove with the wire exiting through the wound. A subcutaneous pocket was created in the inferior portion of the wound. A peel-away introducer sheath and dilator was passed over the guidewire and the catheter which had been flushed with heparinized saline was passed through the sheath and position of the superior vena cava under fluoroscopy. The catheter was aspirated, found to aspirate blood freely, was then flushed with heparinized saline. The catheter was cut to appropriate length, connected to the subcutaneous port, which had also been flushed with heparinized saline. The port was then placed into the subcutaneous pocket and held in the pocket with sutures of 2-0 Ethibond. The entire port and catheter were inspected with fluoroscopy. There were no kinks. The catheter tip was seen to be in the superior vena cava. Hemostasis of the wound was seen to be adequate. The wound was then closed with 3-0 Vicryl subcutaneous tissue and 4-0 Vicryl subcuticular to the skin. Dermabond and sterile dressing were applied. The patient tolerated the procedure well. Estimated blood loss was 10 mL. There were no complications. All counts were correct. The patient was taken to the recovery room in satisfactory condition. MD MEÑO Adames/ADRIELL /[id number]
== END | disposition home or self-care (01) ==
LOC: OR 08:40
PROVIDERS: ATTEND Surgery
DX: C18.9 Malignant neoplasm of colon, unspecified (principal); I10 Essential (primary) hypertension; Z01.810 Encounter for preprocedural cardiovascular examination; Z01.812 Encounter for preprocedural laboratory examination; Z11.59 Encounter for screening for other viral diseases; Z68.32 Body mass index [BMI] 32.0-32.9, adult
CPT/HCPCS: 36415; 36561; 71045; 77001; 81025; 85025; 87635; 93005; C1751; J0690; J1100; J1644; J2001; J2250; J2405; J3010; J7050

== ENCOUNTER 2020-04-01 01:02 | Emergency (ER) | payer OTHER ==
[~2020-04-01] VITALS: Ht 172.7 cm; Wt 95.3 kg
[~2020-04-01 01:02] MED LIST changes: -CEFAZOLIN SOD 1 GM/NS 50ML 100 ML IV ONE; -DEXAMETHASONE SOD PHOS INJ 4 MG/ML VIAL ONE; -ETOMIDATE 2 MG/ML 10 ML INJ IV ONE; -FENTANYL CITRATE/PF 100MCG/2 ML INJ ONE; -HEPARIN SOD (PORCINE) 1000 UNIT/ML SDV ONE; -LIDOCAINE HCL 1% 30ML-PF VIAL ONE; -LIDOCAINE HCL 2% LOCAL INJ 5 ML SDV VIAL INJ ONE; -MIDAZOLAM HCL 2 MG/2 ML VIAL ONE; -ONDANSETRON HCL INJ 2MG/ML 2ML 2 MG/ML VIAL ONE; -SEVOFLURANE INHAL SOLN 250 ML PEN BTL ONE; -SODIUM CHLORIDE 0.9% 100 ML ONE
--- OUTSIDE RECORDS SUMMARY | 2020-04-01 01:06 | XMS REPORT ---
Author Author [facility] t Organization [facility] t Address [address] [place] [address] Phone Unavailable Care Team Providers Care Sql Database Developer Name Role Phone NO, PCP PCP Unavailable ROSEMARY SAMS Attphys Unavailable TURK, MANNY Attphys Unavailable TURK, JORGE Attphys Unavailable TURKMANNY Admphys Unavailable Payers Payer Name Policy Type Policy Number Effective Date Expiration Date [id number] [id number] Problems Condition Name Condition Details Condition Category Status Onset Date Resolution Date Last Treatment Date Treating Clinician Comments Source Cellulitis of breast Cellulitis of breast Problem Active [facility] Large bowel obstruction Large bowel obstruction Problem Active [facility] Malignant neoplasm of colon Colon cancer Problem Active [facility] Small bowel obstruction SBO (small bowel obstruction) Problem Active [facility] Vomiting Vomiting Problem Active [facility] Allergies, Adverse Reactions, Alerts This patient has no known allergies or adverse reactions. Medications Ordered Medication Name Filled Medication Name Start Date Stop Da te Current Medication? Ordering Clinician Indication Dosage Frequency Signature (SIG) Comments Components Source Ciprofloxacin Hcl (Cipro) 500 Mg Tablet, 500 Mg Oral C iprofloxacin Hcl (Cipro) 500 Mg Tablet, 500 Mg Oral 2019-12-26 00:00:00 2020-01-09 00:00:00 No Ambica Sandhir Do 500 Twice A Day [facility] Metronidazole (Flagyl) 500 Mg Tablet, 500 Mg Oral Metr onidazole (Flagyl) 500 Mg Tablet, 500 Mg Oral 2019-12-26 00:00:00 2020-01-09 00:00:00 No Ambi ca Sandhir Do 500 Every 6 Hours [facility] Metoclopramide Hcl (Reglan) 5 Mg Tablet Metoclopramide Hcl ( Reglan) 5 Mg Tablet Yes 5 Before Meals [facility] Ondansetron Hcl (Zofran*) 4 Mg Tablet Ondansetron Hcl (Zofran*) 4 M g Tablet Yes 4 As Needed [facility] Ondansetron Hcl (Zofran) 8 Mg Tablet, Ondansetron Hcl (Zofran) 8 Mg Tablet, 2020-01-18 00:00:00 No [facility] Hydrocodone Bit/Acetaminophen ([place] 5-325 Tablet) 1 E ach Tablet, 1-2 Each Oral Hydrocodone Bit/Acetaminophen ([place] 5-325 Tablet) 1 Each Tablet, 1-2 Each Oral 2020-01-11 00:00:00 No Every 4 Hours as needed for Mild Pain (1-3) Or Fever>100.8 [facility] Ondansetron Hcl (Zofran*) 4 Mg Tablet, 4 Mg Oral Ondan setron Hcl (Zofran*) 4 Mg Tablet, 4 Mg Oral 2020-01-11 00:00:00 No 4 Every 4 Hours as needed for Nausea And Vomiting [facility] Sennosides (Senna Laxative) 8.6 Mg Tablet, 8.6 Mg Oral Sennosides (Senna Laxative) 8.6 Mg Tablet, 8.6 Mg Oral 2020-01-11 00:00:00 No 8.6 Twice A Day [facility] Doxycycline Hyclate 100 Mg Capsule, 100 Mg Oral Doxycy garcia Hyclate 100 Mg Capsule, 100 Mg Oral 2020-01-09 00:00:00 No 100 Twi ce A Day [facility] Doxycycline Hyclate 100 Mg Capsule, 100 Mg Oral Doxycy garcia Hyclate 100 Mg Capsule, 100 Mg Oral 2020-01-09 00:00:00 No 100 Twi ce A Day [facility] Procedures Procedure Date / Time Performed Performing Clinician [facility] e CT of abdomen and pelvis without contrast 2020-01-16 00:00:00 MANNY TUTTLE [facility] Insertion of venous access port 2020-01-15 00:00:00 NICOL SAMS [facility] Computed tomography of abdomen and pelvis with contrast 2019 00:00:00 JORGE PORTILLO [facility] Laparoscopic colectomy 2020-01-04 00:00:00 ROSEMARY SAMS [facility] Computed tomography of abdomen and pelvis with contrast 2019 00:00:00 JORGE PORTILLO [facility] US Gallbladder 2020-01-03 00:00:00 JORGE PORTILLO [facility] X-ray of chest, two views 2020-01-03 00:00:00 JORGE PORTILLO [facility] Computed tomography of abdomen and pelvis with contrast 2019 00:00:00 JROGE TURK [facility] Encounters Start Date/Time End Date/Time [facility] ID Source 2020-03-27 09:39:00 2020-03-26 18:12:00 Inpatient E [id number] [facility] 2020-01-11 15:47:00 2020-01-18 10:55:00 Discharged Inpatient 1 MANNY TURK [facility] [id number] [facility] 2020-01-03 16:48:00 2020-01-09 13:43:00 Discharged Inpatient 1 MANNY TURK [facility] [id number] [facility] 2019-12-26 16:54:00 2019-12-26 22:05:00 Departed Emergency Room 1 JORGE TURK [facility] [id number] [facility] 2018-12-20 22:35:00 2018-12-23 16:35:00 Discharged Inpatient (obs) [facility] [id number] [facility] Results Test Description Test Time Test Comments Results Result Comments Source CHEST SINGLE (PORTABLE) 2020-03-11 12:17:00 [place] [address] Patient Name: PALUA LYNCH MR #: [id number] : 1970 Age/Sex: 49/F Req #: [id number] Adm Physician: Ordered by: ROSEMARY SAMS MD Report #: [id number] Location: OR Room/Bed: Procedure: [id number] DX/CHEST SINGLE (PORTABLE) Exam Date: 03/11/20 Exam Time: 1155 REPORT STATUS: Signed EXAM: CHEST SINGLE (PORTABLE) DATE: 03/11/2020 11:55 AM INDICATION: Status post line placement COMPARISON: 01/11/2020 FINDINGS: There has been interval placement of a left subclavian chest port with catheter tip terminating appropriately over the cavoatrial junction. The trachea is midline. The lungs are symmetrically expanded without evidence for large focal consolidation, pneumothorax, or significant pleural effusion. The cardiomediastinal silhouette is within normal limits. No acute osseous abnormality is identified. IMPRESSION: No evidence for pneumothorax or other acute cardiopulmonary process status post left subclavian chest port insertion. Signed by: Dr. Rich England MD on 03/11/2020 12:19 PM Dictated By: RICH ENGLAND MD 1219 Trans cribed By: BUBBA on 03/11/20 1219 COPY TO: ROSEMARY SAMS MD Blood Culture 2020-01-18 06:06:00 Test Item Blood Culture (test code = 62698108) NO GROWTH AFTER 72 HOURS [facility] Ptrlp3939-85-20 05:25:00* Test Item Value Reference Range Interpretation Comments Sodium Level (test code = 2951-2) 141 136-145 [facility]vinePotassium Zczsr4977-95-71 05:25:00* Test Item Value Reference Range Interpretation Comments Potassium Level (test code = 2823-3) 4.4 3.5-5.1 [facility]vineChloride Kbtya2352-15-70 05:25:00* Test Item Value Reference Range Interpretation Comments Chloride Level (test code = 2075-0) 109 98-107 [facility]vineCarbon Dioxide Lmdgv6161-20-08 05:25:00* Test Item Value Reference Range Interpretation Comments Carbon Dioxide Level (test code = 2028-9) 24 22-29 [facility] GrapevineAnion Nqz0222-66-31 05:25:00* Test Item Value Reference Range Interpretation Comments Anion Gap (test code = 25589-6) 12.4 8-16 [facility]vineBlood Urea Buhnwywj4973-47-16 05:25:00* Test Item Value Reference Range Interpretation Comments Blood Urea Nitrogen (test code = 3094-0) 9 7-26 [facility]vineCreatinine2020-03-13 05:25:00* Test Item Value Reference Range Interpretation Comments Creatinine (test code = 2160-0) 0.82 0.57-1.11 [facility]vineBUN/Creatinine Qbnac7740-90-33 05:25:00* Test Item Value Reference Range Interpretation Comments BUN/Creatinine Ratio (test code = 3097-3) 11 05-01 [facility] GrapevineEstimat Glomerular Filtration Rate 2020-01-18 05:25:00* Test Item Value Reference Range Interpretation Comments Estimat Glomerular Filtration Rate (test code = 329187050) > 60 >60 Ranges were taken from the National Kidney Disease Education Program and the [facility] Kidney Foundation literature.Reference ranges:60 or greater: Ztcrrv55-06 ( for 3 consecutive months): Chronic kidney disease 15 or less: Kidney failureCHI [facility] Medical Center Of El PasoGlucose Ensub5962-02-43 05:25:00* Test Item Value Reference Range Interpretation Comments Glucose Level (test code = CNM6009) 87 74-118 [facility]vineCalcium Qevbo6525-65-56 05:25:00* Test Item Value Reference Range Interpretation Comments Calcium Level (test code = 30771-7) 10.5 8.4-10.2 [facility] GrapevineCT ABDOMEN/PELVIS [id number] 12:14:00 [place] [address] Patient Name: PAULA LYNCH MR #: [id number] : Age/Sex: 49/F Req #: [id number] Adm Physician: MANNY TURK MD Ordered by: MANNY TURK MD Report #: [id number] Location: MED/SURG Room/Bed: [facility] Procedure: C T/CT ABDOMEN/PELVIS WO Exam Date: Exam Time: REPORT STATUS: Signed EXAM: CT Abdomen and Pelvis WITHOUT intravenous contrast INDICATION: Abdominal pain COMPARISON: None. TECHNIQUE: Abdomen and pelvis were scanned utilizing a m ultidetector helical scanner from the lung base to the pubic symphysis without administration of IV contrast. Coronal and sagittal reformations were obtaine d. IV CONTRAST: None ORAL CONTRAST: Gastrografin C OMPLICATIONS: None RADIATION DOSE: Total DLP: 719 mGy*cm Dose modul ation, iterative reconstruction, and/or weight based adjustment of the mA/kV w as utilized to reduce the radiation dose to as low as reasonably achievable. FINDINGS: LOWER THORAX: Normal. HEPATOBILIARY: No focal hepatic lesi ons. No biliary ductal dilatation. The gallbladder appears unremarkable. SPLEEN: No splenomegaly. PANCREAS: No focal masses or ductal dilatation. ADRENALS: No adrenal nodules. KIDNEYS/URETERS: No hydronephrosis, stones, or solid mass lesions. PELVIC ORGANS/BLADDER: Unremarkable. PERITONEUM / RETROPERITONEUM: No free air or fluid. LYMPH NODES: No lymphadenopathy. VESS ELS: Unremarkable. GI TRACT: Status post right colectomy with right abdomin al anastomosis. Mildly distended loop of small bowel in the right lower quadra nt measures up to 3.1 cm maximum diameter. BONES AND SOFT TISSUES: No acu te osseous injury. Midline lower abdominal surgical scar. Tiny pocket of subcu taneous air in the right anterior lower abdominal wall, possibly related to in jection. No associated focal fluid collection. IMPRESSION: Status post right colectomy with right lower abdominal anastomosis. Loops of small bowel are mildly dilated up to 3.1 cm proximal to the anastomosis, possibly presenti ng ileus. No definite evidence of high-grade obstruction. There is air through out the colon and rectum. No free air. Signed by: Analy Shipley MD on 01/16/20 12:21 PM Dictated By: ANALY SHIPLEY MD 122 Transcribed By: BUBBA on 01/16/20 1221 COPY TO: MANNY TURK MD Phosphorus Ugvev8109-90-36 07:49:00* Test Item Value Reference Range Interpretation Comments Phosphorus Level (test code = RFX6372) 2.5 2.3-4.7 [facility]vineMagnesium Rwisb7699-96-59 07:49:00* Test Item Value Reference Range Interpretation Comments Magnesium Level (test code = 97551-1) 2.0 1.3-2.1 [facility] GrapevineCarcinoembryonic Snusamt9193-40-45 14:25:00* Test Item Value Reference Range Interpretation Comments Carcinoembryonic Antigen (test code = 2039-6) 2.1 0.0-4.7 Nonsmokers <3.9 Smokers <5.6[employer] Electrochemiluminescence Immunoassay(ECLIA)Values obtained with different assay methods or kitscannot be used interchangeably. Results cannot beinterpreted as absolute evidence of the presence orabsence of malignant disease.Performed at: [facility] Lab[address] [id number] Director: Pineda Crespo MD, Phone: [phone] Scott [facility] GrapevineWhite Blood Fyfha7403-64-23 06:29:00* Test Item Value Reference Range Interpretation Comments White Blood Count (test code = 6690-2) 8.24 4.8-10.8 [facility] GrapevineRed Blood Gfdes5220-91-06 06:29:00* Test Item Value Reference Range Interpretation Comments Red Blood Count (test code = 789-8) 3.69 3.6-5.1 [facility]vineHemoglobin2020-03-10 06:29:00* Test Item Value Reference Range Interpretation Comments Hemoglobin (test code = 36993-7) 9.0 12.0-16.0 [facility]rapevineHematocrit2020-03-10 06:29:00* Test Item Value Reference Range Interpretation Comments Hematocrit (test code = 4544-3) 29.2 34.2-44.1 [facility] GrapevineMean Corpuscular Bimnjy3671-86-80 06:29:00* Test Item Value Reference Range Interpretation Comments Mean Corpuscular Volume (test code = 787-2) 79.1 81-99 [facility] GrapevineMean Corpuscular Iqqvojqzmr8195-27-30 06:29:00* Test Item Value Reference Range Interpretation Comments Mean Corpuscular Hemoglobin (test code = 785-6) 24.4 28-32 [facility] GrapevineMean Corpuscular Hemoglobin Concent 2020-01-15 06:29:00* Test Item Value Reference Range Interpretation Comments Mean Corpuscular Hemoglobin Concent (test code = 786-4) 30.8 31-35 [facility] GrapevineRed Cell Distribution Wrerj2444-36-91 06:29:00* Test Item Value Reference Range Interpretation Comments Red Cell Distribution Width (test code = 41941-3) 14.3 11.7 -14.4 [facility] GrapevinePlatelet Quetl2871-12-31 06:29:00* Test Item Value Reference Range Interpretation Comments Platelet Count (test code = 777-3) 431 140-360 [facility] GrapevineNeutrophils (%) (Auto)2020-01-15 06:29:00 * Test Item Value Reference Range Interpretation Comments Neutrophils (%) (Auto) (test code = 42607-1) 57.0 38.7-80.0 [facility] GrapevineLymphocytes (%) (Auto)2020-01-15 06:29:00 * Test Item Value Reference Range Interpretation Comments Lymphocytes (%) (Auto) (test code = 736-9) 31.1 18.0-39.1 [facility]rapevineMonocytes (%) (Auto)2020-01-15 06:29:00* Test Item Value Reference Range Interpretation Comments Monocytes (%) (Auto) (test code = 5905-5) 7.4 4.4-11.3 [facility]vineEosinophils (%) (Auto)2020-01-15 06:29:00 * Test Item Value Reference Range Interpretation Comments Eosinophils (%) (Auto) (test code = 713-8) 3.4 0.0-6.0 [facility]rapevineBasophils (%) (Auto)2020-01-15 06:29:00* Test Item Value Reference Range Interpretation Comments Basophils (%) (Auto) (test code = 706-2) 0.7 0.0-1.0 [facility] GrapevineIM GRANULOCYTES %2020-01-15 06:29:00* Test Item Value Reference Range Interpretation Comments IM GRANULOCYTES % (test code = IM GRANULOCYTES %) 0.4 0.0- 1.0 [facility]vineNeutrophils # (Auto)2020-01-15 06:29:00* Test Item Value Reference Range Interpretation Comments Neutrophils # (Auto) (test code = 751-8) 4.7 2.1-6.9 [facility] GrapevineLymphocytes # (Auto)2020-01-15 06:29:00* Test Item Value Reference Range Interpretation Comments Lymphocytes # (Auto) (test code = 77438-3) 2.6 1.0-3.2 [facility]rapevineMonocytes # (Auto)2020-01-15 06:29:00* Test Item Value Reference Range Interpretation Comments Monocytes # (Auto) (test code = 742-7) 0.6 0.2-0.8 [facility]vineEosinophils # (Auto)2020-01-15 06:29:00* Test Item Value Reference Range Interpretation Comments Eosinophils # (Auto) (test code = 711-2) 0.3 0.0-0.4 [facility]rapevineBasophils # (Auto)2020-01-15 06:29:00* Test Item Value Reference Range Interpretation Comments Basophils # (Auto) (test code = 704-7) 0.1 0.0-0.1 [facility] GrapevineAbsolute Immature Granulocyte (auto 2020-01-15 06:29:00* Test Item Value Reference Range Interpretation Comments Absolute Immature Granulocyte (auto (jose t code = Absolute Immature Granulocyte (auto) 0.03 0-0.1 [facility] GrapevineABDOMEN-1VIEW (KUB)2020-01-14 10:24:00 [place] [address] Patient Name: PAULA LYNCH MR #: [id number] : Age/Sex: 49/F Req #: [id number] Adm Physician: MANNY TURK MD Ordered by: ROSEMARY VAUGHN MD Report #: [id number] Location: MED/SURG Room/Bed: 111-1 Procedure: [id number] DX/ABDOMEN-1VIEW (KUB) Exam Date: 01/14/20 Exam Time : 929 REPORT STATUS: Signed EXA M: Abdomen Radiograph 1 View(s) INDICATION: sbo [id number] COMPARISON: 01/13/2020 FINDINGS: The bowel gas pattern is nonspecific. Prominent formed stool within the colon. No discrete free intraperitoneal a ir is identified. No acute osseous abnormality. No abnormal soft tissue neha cification. Mild multilevel lumbar spine degenerative change. Midline lapar otomy surgical clips. IMPRESSION: Nonspecific bowel gas pattern. The previously seen single dilated loop of right upper quadrant small bowel is no longer discretely identified. Signed by: Ava Aguero MD on 01/14/2020 10 :26 AM Dictated By: AVA AGUERO MD 1026 Transcribed By: BUBBA on 01/14/20 1026 COPY TO: ROSEMARY VAUGHN MD Axjmgota5500-86-77 07:47:00* Test Item Value Reference Range Interpretation Comments Ferritin (test code = 2276-4) 55.99 4.63-204.00 [facility] GrapevineIron Pwcke1022-31-36 07:24:00* Test Item Value Reference Range Interpretation Comments Iron Level (test code = 2498-4) 22 50-170 [facility] GrapevineTotal Iron Binding Lnzuvweh1504-50-14 07:24:00* Test Item Value Reference Range Interpretation Comments Total Iron Binding Capacity (test code = 2500-7) 281 261-4 78 [facility] GrapevinePercent Iron Mgommvplvj0279-50-37 07:24:00* Test Item Value Reference Range Interpretation Comments Percent Iron Saturation (test code = 2502-3) 8 15-50 [facility] GrapevineTransferrin2020-03-09 07:24:00* Test Item Value Reference Range Interpretation Comments Transferrin (test code = 3034-6) 201 180-382 [facility] GrapevineABDOMEN-1VIEW (KUB)2020-01-13 13:39:00 [facility] [address] [place] [address] Patient Name: PAULA LYNCH MR #: [id number] : Age/Sex: 49/F Req #: [id number] Adm Physician: MANNY TURK MD Ordered by: ROSEMARY VAUGHN MD Report #: [id number] Location: MED/SURG Room/Bed: [facility] Procedure: [id number] DX/ABDOMEN-1VIEW (KUB) Exam Date: 01/13/20 Exam Time : 1140 REPORT STATUS: Signed Exa m: KUB - 2 views Clinical History: Small bowel obstruction. Comparison : CT Abdomen/Pelvis 01/13/2020. Findings: Mildly dilated small bowel loop in the right upper quadrant, measuring up to 3.5 cm. Air is seen in the rectu m. Anastomotic sutures overlie the right upper quadrant. No evidence of free i ntraperitoneal air. No evidence of abnormal calcification. No acute bony abnor mality. Surgical jimena overlie the right hemiabdomen. Impression: Mi ldly dilated small bowel loop in the right upper quadrant, measuring up to 3.5 cm. This corresponds to same location as prior CT. This may represent focal i leus however follow-up KUB is recommended to assess for partial small bowel ob struction. Signed by: Dr. Drea Edmonds MD on 01/13/2020 1:47 PM Dictat ed By: DREA EDMONDS MD 46 Transcribed By: BUBBA on 01/13/201346 COPY TO: ROSEMARY VAUGHN MD Creatine Kinase QX5669-25-92 06:46:00* Test Item Value Reference Range Interpretation Comments Creatine Kinase MB (test code = 83539-3) 0.80 0-5.0 [facility] GrapevineTroponin [id number] 06:46:00* Test Item Value Reference Range Interpretation Comments Troponin I (test code = CKH4223) 0.016 0-0.300 [facility] GrapevineCreatine Benrtu0204-55-60 06:43:00* Test Item Value Reference Range Interpretation Comments Creatine Kinase (test code = 2157-6) 33 29-168 [facility] GrapevineTotal Ucfxtdvzd9212-55-08 06:16:00* Test Item Value Reference Range Interpretation Comments Total Bilirubin (test code = 1975-2) 0.4 0.2-1.2 [facility] GrapevineAspartate Amino Transf (AST/SGOT) 2020-01-12 06:16:00* Test Item Value Reference Range Interpretation Comments Aspartate Amino Transf (AST/SGOT) (test code = Aspartate Amino Transf (AST/SGOT)) 50 5-34 [facility] GrapevineAlanine Aminotransferase (ALT/SGPT) 2020-01-12 06:16:00* Test Item Value Reference Range Interpretation Comments Alanine Aminotransferase (ALT/SGPT) (test code = 1742-6) 42 0-55 [facility] GrapevineTotal Turmlym2060-20-38 06:16:00* Test Item Value Reference Range Interpretation Comments Total Protein (test code = 2885-2) 6.5 6.5-8.1 [facility] GrapevineAlbumin2020-03-07 06:16:00* Test Item Value Reference Range Interpretation Comments Albumin (test code = 1751-7) 2.8 3.5-5.0 [facility] GrapevineGlobulin2020-03-07 06:16:00* Test Item Value Reference Range Interpretation Comments Globulin (test code = 27120-0) 3.7 2.3-3.5 [facility] GrapevineAlbumin/Globulin Amhzv5450-26-90 06:16:00 * Test Item Value Reference Range Interpretation Comments Albumin/Globulin Ratio (test code = 1759-0) 0.8 0.8-2.0 [facility] GrapevineAlkaline Cpttvqsoywb7273-77-84 06:16:00* Test Item Value Reference Range Interpretation Comments Alkaline Phosphatase (test code = 6768-6) 112 40-150 [facility] GrapevineUrine BOG2860-05-79 18:04:00* Test Item Value Reference Range Interpretation Comments Urine WBC (test code = 5821-4) NONE 0-5 [facility] GrapevineUrine DXR1585-27-30 18:04:00* Test Item Value Reference Range Interpretation Comments Urine RBC (test code = 60488-3) NONE 0-5 [facility] GrapevineUrine Bxahjmfc1233-30-05 18:04:00* Test Item Value Reference Range Interpretation Comments Urine Bacteria (test code = 11244-7) FEW NONE [facility] GrapevineUrine Epithelial Eqjbe6492-16-39 18:04:00 * Test Item Value Reference Range Interpretation Comments Urine Epithelial Cells (test code = 25498-4) NONE NONE [facility] GrapevineUrine Amorphous Cegmscbi8190-89-17 18:04:00* Test Item Value Reference Range Interpretation Comments Urine Amorphous Sediment (test code = 8246-1) MODERATE FEW [facility] GrapevineUrine Sduly1636-09-40 17:46:00* Test Item Value Reference Range Interpretation Comments Urine Color (test code = 5778-6) YELLOW YELLOW [facility] GrapevineUrine Wphtvea3800-85-61 17:46:00* Test Item Value Reference Range Interpretation Comments Urine Clarity (test code = 40152-8) HAZY CLEAR [facility] GrapevineUrine Specific Eaujqgn0664-53-52 17:46:00 * Test Item Value Reference Range Interpretation Comments Urine Specific [place] (test code = 5811-5) 1.015 1.010-1.02 5 [facility] GrapevineUrine rV3188-93-19 17:46:00* Test Item Value Reference Range Interpretation Comments Urine pH (test code = 66136-2) 7.5 5-7 [facility] GrapevineUrine Leukocyte Ietkszwg0594-66-09 17:46:00* Test Item Value Reference Range Interpretation Comments Urine Leukocyte Esterase (test code = 5799-2) NEGATIVE NEGATIVE [facility] GrapevineUrine Mvxgubb8289-35-14 17:46:00* Test Item Value Reference Range Interpretation Comments Urine Nitrite (test code = 65898-1) NEGATIVE NEGATIVE [facility] Nrjvnvx7196-96-06 17:46:00* Test Item Value Reference Range Interpretation Comments Urine Protein (test code = 5804-0) NEGATIVE NEGATIVE [facility] Glucose (UA)2020-01-11 17:46:00* Test Item Value Reference Range Interpretation Comments Urine Glucose (UA) (test code = 2349-9) NEGATIVE NEGATIVE [facility]vine[facility] Dwayfvg4159-60-24 17:46:00* Test Item Value Reference Range Interpretation Comments Urine Ketones (test code = 17015-9) NEGATIVE NEGATIVE [facility] Oktkouusdsfl7206-45-25 17:46:00* Test Item Value Reference Range Interpretation Comments Urine Urobilinogen (test code = 32261-7) 0.2 0.2-1 [facility] Lykznquct4712-22-67 17:46:00* Test Item Value Reference Range Interpretation Comments Urine Bilirubin (test code = 1978-6) NEGATIVE NEGATIVE [facility] Iyqwh3125-55-42 17:46:00* Test Item Value Reference Range Interpretation Comments Urine Blood (test code = 18614-4) TRACE NEGATIVE [facility]vineLactic Acid Qdhec0218-59-31 15:39:00* Test Item Value Reference Range Interpretation Comments Lactic Acid Level (test code = Lactic Acid Level) 0.8 0.5- 2.0 [facility]vineLipase2020-03-06 15:28:00* Test Item Value Reference Range Interpretation Comments Lipase (test code = 3040-3) 42 8-78 [facility]vineCT ABDOMEN/PELVIS [id number] 15:14:00 [facility] [address] [address] Patient Name: PAULA LYNCH MR #: [id number] : Age/Sex: 49/F Req #: [id number] Adm Physician: Ordered by: JORGE PORTILLO CLERICAL SECRETARY Report #: [id number] Location: ER Room/Bed: Procedure: 0306-[address]/CT ABDOMEN/PELVIS W Exam Date: 01/11/20 Exam Time: 1450 REPORT STATUS: Signed EXAMINATION: CT of the abdomen and pelvis with contrast. TECHNIQUE: [facility] CT images of the abdomen and pelvis were performed from the lung bases to the lesser trochanters after the intravenous administration of 100 cc of Isov ue 300 and the oral administration of none. Coronal and sagittal reformatted images were obtained.Dose modulation, iterative reconstruction, and/or weight based adjustment of the mA/kV was utilized to reduce the radiation dose to as low as reasonably achievable. COMPARISON: None. CLINICAL HISTORY:Abd ominal pain DISCUSSION: ABDOMEN/PELVIS: LOWER THORAX:Unremar kable. HEPATOBILIARY: No focal hepatic lesions. No intra-or extrahepatic b iliary ductal dilation. The gallbladder is normal. SPLEEN: No splenom egaly. PANCREAS: No focal masses or ductal dilatation. ADRENALS: No a drenal nodules. KIDNEYS/URETERS: No hydronephrosis, stones, or solid mass l esions. PELVIC ORGANS/BLADDER: The bladder is normal. PERITONEUM/RET ROPERITONEUM: Mild reactive free fluid in the right hemiabdomen adjacent to th e inflamed bowel. LYMPH NODES: No intra-abdominal, retroperitoneal, pelvic or inguinal lymphadenopathy. VESSELS: The celiac trunk,superior and infer ior mesenteric and bilateral renal arteries are patent The portal, superior mesenteric and splenic veins are patent. GI TRACT: Partial right hemicole ctomy with intact ileocolonic anastomosis. The jejunum is right of midline. Mi ldly dilated small bowel in the right hemiabdomen with wall thickening and sto ol formation. No pneumatosis or free air. BONES AND SOFT TISSUE: No bony destructive lesions. No soft tissue abnormalities. IMPRESSION: Right hemicolectomy intact ileal colonic anastomosis. The jejunum is right of midline. Inflamed proximal small bowel in the right hemiabdomen with th ickening, mild dilation and stool formation likely reflective of focal ileus. If symptoms persist/progress recommend follow-up imaging to assess for obstruc tion. Signed by: Dr. Carlos A Feldman M.D. on 01/11/2020 3:30 PM Dictat ed By: CARLOS A FELDMAN MD 29 COPY TO: LADONNA PORTILLO NP Human Chorionic Gonadotropin, [id number] 13:21:00* Test Item Value Reference Range Interpretation Comments Human Chorionic Gonadotropin, Qual (test code = 2118-8) NEGATIVE NEGATIVE [facility]2020-01-11 13:08:00 [facility] [address] [place] [address] Patient Name: PAULA LYNCH MR #: [id number] : 1970 Age/Sex: 49/F Req #: [id number] Adm Physician: Ordered by: JORGE PORTILLO CLERICAL SECRETARY Report #: [id number] Location: ER Room/Bed: Procedure: 0306-0 029 DX/CHEST SINGLE (PORTABLE) Exam Date: 01/11/20 E xam Time: 1215 REPORT STATUS: Latonya dunn Chest, 1 view, 01/11/2020. History: Nausea and vomiting. Co mparison: 01/03/2020. Findings: There is poor inspiration. The cardiomediast inal silhouette and pulmonary vasculature are within normal limits for a dangelo ble exam. There is no focal consolidation or pleural effusion. There are no ac demetrio osseous or soft tissue abnormalities. Impression: No acute cardio pulmonary abnormality. Signed by: Jorge Jean on 01/11/2020 1:09 PM Dictated By: JORGE JEAN MD 1309 COPY TO: LADONNA PORTILLO NP Amylase Yrymq0860-31-99 13:07:00* Test Item Value Reference Range Interpretation Comments Amylase Level (test code = 1798-8) 26 25-125 [facility] Umedcqhqesuu2320-40-20 05:15:00* Test Item Value Reference Range Interpretation Comments Stool Calprotectin (test code = 52959-5) 78 0-120 Concentration Interpretation Follow-Up<16 - 50 ug/g Normal None>50 -120 ug/g Borderline Re-evaluate in 4-6 weeks >120 ug/g Abnormal Repeat as clinically indicatedPerformed at: - [facility] [id number] Director: Loretta Mathis MD, Phone: [phone] Scott & [facility] GrapevineC-Reactive Xmizbkt1286-93-16 23:22:00* Test Item Value Reference Range Interpretation Comments C-Reactive Protein (test code = 1988-5) 21 0-10 Performed at: - [facility] [address] [id number] Director: Pineda Crespo MD, Phone: [phone] Scott & [facility] GrapevineFolate2020-02-29 06:59:00* Test Item Value Reference Range Interpretation Comments Folate (test code = 2284-8) 18.3 >3.0 A serum folate concentration of less than 3.1 ng/mL isconsidered to represent cl inical deficiency.Performed at: HD - [facility] [address] [id number] Director: Pineda Crespo MD, Phone: [phone] Scott & [facility] – GrapevineErythrocyte Sedimentation Pabg9830-74-67 09:41:00* Test Item Value Reference Range Interpretation Comments Erythrocyte Sedimentation Rate (test code = 4537-7) 23 0- 20 [facility] GrapevineVitamin B12 Ozwen2180-34-59 07:11:00* Test Item Value Reference Range Interpretation Comments Vitamin B12 Level (test code = 60106-0) 411 213816 [facility] GrapevineThyroid Stimulating Hormone (TSH) 2020-01-04 07:11:00* Test Item Value Reference Range Interpretation Comments Thyroid Stimulating Hormone (TSH) (test code = 92485-6) 6.916 0.350-4.940 [facility]vineHemoglobin A1c Phzzxoj2779-15-49 06:28:00 * Test Item Value Reference Range Interpretation Comments Hemoglobin A1c Percent (test code = Hemoglobin A1c Percent) 5.7 4.0-7.0 [facility]rapevineABDOMEN-1VIEW (KUB)2020-01-03 22:39:00 [facility] [address] [place] [address] Patient Name: PAULA LYNCH MR #: [id number] : Age/Sex: 49/F Req #: [id number] Adm Physician: MANNY TURK MD Ordered by: LUIS TAYLOR MD Report #: [id number] Location: [facility] Room/Bed: [address] [address] Procedure: 86 DX/ABDOMEN-1VIEW (KUB) Exam Date: 01/03/20 Exam T jay: 2230 REPORT STATUS: Signed Exam: Abdominal film Clinical History: NG tube placement Compariso n: CT abdomen and pelvis 01/03/2020 DISCUSSION: Enteric tube tip projec ts over the gastric body. Side port projects over the expected region of the g astroesophageal junction. Several dilated air-filled loops of small bowel a re again noted. No mass effect or organomegaly. No abnormal calcifications. Re gional skeletal structures are intact. The right flank is not included on the radiograph. IMPRESSION: Enteric tube tip projects over the proximal ga stric body as above. Persistent small bowel dilatation seen to better advan jovannie on comparison CT 01/03/2020. Signed by: Godwin Faith on 01/03/2020 10:42 PM Dictated By: ROSEMARY SCHULER MD Electronically S igned By: ROSEMARY SCHULER MD on 01/03/202241 Transcribed By: BUBBA on 01/03/202241 COPY TO: LUIS TAYLOR MD [id number] 15:40:[address] [address] Patient Name: PAULA LYNCH MR #: [id number] : 1970 Age/Sex: 49/F Req #: [id number] Adm Physician: Ordered by: JORGE PORTILLO CLERICAL SECRETARY Report #: [id number] Location: ER Room/Bed: Procedure: 015 US/US GALLBLADDER Exam Date: 01/03/20 Exam Time: 1248 REPORT STATUS: Signed EXAM: Right upper quadrant abdominal ultrasound INDICATION: Right upper quadr ant pain COMPARISON: CT abdomen and pelvis of the same day TECHNIQUE: Turk sverse and longitudinal images of the right upper quadrant abdomen were obtain ed FINDINGS: Liver: Size: 14.2 cm in the right midclavicular line, normal Appearance: Increased echogenicity, smooth contour Mass: No focal ma sses Gallbladder: Small amount of sludge in the gallbladder. Small echogeni c foci at the neck of the gallbladder may represent small non-shadowing calcul i. No gallbladder distension, pericholecystic fluid, wall thickening, or repor ronnell sonographic Moss's sign. Gallbladder wall measures 3 mm. Bile Duct s: Intrahepatic Ducts: No dilatation Extrahepatic Ducts: Common bile duct me asures 3 mm Pancreas: Visualized portions of the pancreatic head, neck and p roximal body are normal. Kidney: The right kidney measures 9.8 cm without e vidence of hydronephrosis or stone. Vessels: Aorta: Visualized portion s are normal Inferior Vena Cava: Visualized portions are normal Main Portal Vein: 1.0 cm, normal size with hepatopetal flow. Free Fluid: No ascites o r pleural effusion IMPRESSION: Sludge and possible small calculi in the g allbladder. No sonographic evidence of cholecystitis. Signed by: Abraham Shipley MD on 01/03/2020 3:43 PM Dictated By: ANALY SHIPLEY MD 1543 Transcribed By: BUBBA on 01/03/20 1543 COPY TO: JORGE PORTILLO NP CT ABDOMEN/PELVIS [id number] 15:27:00 [address] [address] Patient Name: PAULA LYNCH MR #: [id number] : 1970 Age/Sex: 49/F Req #: [id number] Adm Physician: Ordered by: JORGE PORTILLO NP Report #: [id number] Location: ER Room/Bed: Procedure: 0227-[address]/CT ABDOMEN/PELVIS W Exam Date: 01/03/20 Exam Time: 1355 REPORT STATUS: Signed EXAM: CT Abdomen and Pelvis WITH intravenous contrast INDICATION: Right abdominal pain COMPARISON: None. TECHNIQUE: Abdomen and pelvis were sc anned utilizing a multidetector helical scanner from the lung base to the pubi c symphysis after administration of IV contrast. Coronal and sagittal reformat ions were obtained. Routine protocol was performed. Scan was performed during portal venous phase. IV CONTRAST: 100mL of Isovue 370 ORAL CONTRAST: Water RADIATION DOSE: Total DLP: 831 mGy*cm Dose modulation, itera tive reconstruction, and/or weight based adjustment of the mA/kV was utilized to reduce the radiation dose to as low as reasonably achievable. FINDING S: LOWER THORAX: Normal. HEPATOBILIARY: Diffuse hepatic steatosis. No foc al liver lesion. No biliary ductal dilation. Unremarkable gallbladder. SP FELICITA: No splenomegaly. PANCREAS: No focal masses or ductal dilatation. ADRENALS: No adrenal nodules. KIDNEYS/URETERS: No hydronephrosis, stones, or solid mass lesions. PELVIC ORGANS/BLADDER: Unchanged left adnexal cystic struc ture. PERITONEUM / RETROPERITONEUM: No free fluid or free air. LYMPH NODE S: No lymphadenopathy. VESSELS: Unremarkable. GI TRACT: Focal narrowing a nd colonic wall thickening at the hepatic flexure with associated upstream dil ation of large and small bowel, for example dilation of the cecum measuring up to 9.7 cm and diffusely dilated loops of distal small bowel measuring up to 3 .2 cm with numerous air-fluid levels. BONES AND SOFT TISSUES: No acute osse ous injury. No suspicious lytic or blastic lesions. IMPRESSION: Interv al development of small and proximal large bowel obstruction with transition p oint at the previously noted area of focal narrowing and wall thickening at th e hepatic flexure. This may represent malignancy versus stricture related to i nflammatory bowel disease. No free air. Signed by: Analy Shipley MD on 12/09 3:38 PM Dictated By: ANALY SHIPLEY MD 1538 Transcribed By: BBUBA on 01/03/201537 COPY TO: JORGE PORTILLO CLERICAL SECRETARY CHEST 2 [id number] 14:00:00 [facility] [address] [place] [address] Patient Name: PAULA LYNCH MR #: [id number] : Age/Sex: 49/F Req #: [id number] Adm Physician: Ordered by: JORGE PORTILLO CLERICAL SECRETARY Report #: [id number] Location: ER Room/Bed: Procedure: 0227-0 050 DX/CHEST 2 VIEWS Exam Date: 01/03/20 Exam Time: 1311 REPORT STATUS: Signed TECHN IQUE: Frontal and lateral views of the chest. INDICATION: 49-year-old woman with abdominal pain. COMPARISON: None. FINDINGS: LINES/TUBES: None. LUNGS: No consolidation or pulmonary edema. PLEURA: No pleural effusion or pneumothorax. HEART AND MEDIASTINUM: The cardiomediastinal silh ouette is within normal limits. SOFT TISSUES AND BONES: Mild degenerative changes of the thoracic spine. Soft tissues are unremarkable. IMPRESS ION: No acute cardiopulmonary abnormalities. Signed by: Godwin Flores on 01/03/2020 2:02 PM Dictated By: SANDRO LAIRD MD Electronically Sig shaggy By: SANDRO LAIRD MD on 01/03/201401 Transcribed By: BUBBA on 01/03/201401 COPY TO: JORGE PORTILLO NP B-Type Natriuretic Peptide 2020-01-03 13:32:00* Test Item Value Reference Range Interpretation Comments B-Type Natriuretic Peptide (test code = 48511-4) 22.3 0-100 [facility] PasoProthrombin Oipk2405-97-51 13:09:00* Test Item Value Reference Range Interpretation Comments Prothrombin Time (test code = 5902-2) 12.9 11.9-14.5 [facility]vineProthromb Time International Ratio 2020-01-03 13:09:00* Test Item Value Reference Range Interpretation Comments Prothromb Time International Ratio (test code = 6301-6) 0.92 Oral Anticoagulant Therapy INR Values:1. Low Intensity Therapy 1.5 - 2.02 . Moderate Intensity Therapy 2.0 - 3.03. High Intensity Therapy(1) 2.5 - 3. 54. High Intensity Therapy(2) 3.0 - 4.05. Panic Value INR > 5.0 [facility]vineActivated Partial Thromboplast Time 2020-01-03 13:09:00* Test Item Value Reference Range Interpretation Comments Activated Partial Thromboplast Time (test code = 34814-1) 29.6 23.8-35.5 [facility] ABDOMEN/PELVIS [id number] 20:11:00 [facility] [address] [place] [address] Patient Name: PAULA LYNCH MR #: [id number] : Age/Sex: 49/F Req #: [id number] Adm Physician: Ordered by: JORGE TURK DO Report #: [id number] Location: ER Room/Bed: Procedure: 1518-6593 CT/CT ABDOMEN/PELVIS W Exam Date: 12/26/19 Exam Aguila e: 1815 REPORT STATUS: Signed ADDENDUM #1 Addendum: Impression: 3. There is a band like area of density in the lateral aspect of the left breast. Correlation wi th findings of mammography is recommended if not recently performed. Sign ed by: Dr. Yonatan Ward M.D. on 12/26/2019 8:46 PM ORIGINAL REPORT * EXAM: CT Abdomen and Pelvis WITH contrast INDICATION: Epigastric pain [id number] COMPARISON: None. TECHNIQUE: Abdomen a nd pelvis were scanned utilizing a multidetector helical scanner from the lung base to the pubic symphysis after administration of IV contrast. Coronal and sagittal reformations were obtained. Routine protocol was performed. Scan was performed when during portal venous phase. Dose modulation, iterative recon struction, and/or weight based adjustment of the mA/kV was utilized to reduce the radiation dose to as low as reasonably achievable. IV CO NTRAST: 100 mL of Isovue-370 ORAL CONTRAST: Water RA DIATION DOSE: Total DLP: 828.23 mGy*cm Estimated effective dose: (DLP x 0.015 x size factor) mSv COMPLICATIONS: None FINDINGS: LINES and TUBES: None. LOWER THORAX: Lung bases are clear. Heart size normal. HEPATOBILIARY: Low density along the anterior aspect of the falci form ligament likely represents localized fatty infiltration. Liver parenchyma is diffusely lower density than the spleen suggesting steatosis. No other fo neha hepatic lesions. No biliary ductal dilation. GALLBLADDER: No radio-o paque stones or sludge. No wall thickening. SPLEEN: No splenomegaly. PANCREAS: No focal masses or ductal dilatation. ADRENALS: No adrenal nod ules KIDNEYS/URETERS: Kidneys enhance symmetrically. No hydronephrosis . No cystic or solid mass lesions. No stones. GI TRACT: There is distent ion of the terminal ileum with wall thickening and air-fluid level. There is a lso distention with mild wall thickening of the cecum and ascending colon. Mil d wall thickening without distention is seen in the transverse colon and sigmo id. The appendix is mildly prominent measuring up to 8 mm but diffusely contains air and is without surrounding inflammation. PELVIC ORGANS/BLADD ER: Urinary bladder unremarkable. There is a 6.0 cm cystic-appearing structure in the left adnexa with internal density of 20 HU. No surrounding inflammation or fluid. The uterus is retroverted. LYMPH NODES: No dominant lymph node mass is seen in the abdomen, retroperitoneum or pelvis. There are mildly promi nent likely reactive nodes in the right lower abdomen measuring up to 7 mm. VESSELS: Abdominal aorta, IVC and portal system appear unremarkable. PER ITONEUM / RETROPERITONEUM: No pneumoperitoneum or ascites. BONES: No acute or suspicious bony lesions. SOFT TISSUES: Superficial surrounding soft tiss ue shows an area of density in the lateral aspect of the left breast.. IMPRESSION: 1. Distended distal ileum, cecum and ascending colon w ith wall thickening. Wall thickening also seen in the transverse colon and sig moid. There is mild prominence of the appendix which contains air and does not appear inflamed, likely as a part of the same process involving the distal il eum and cecum. Findings are most suggestive of inflammatory bowel disease, les s likely ileocolic infection. 2. There is a 6 cm cystic appearing struct ure in the left adnexa with internal density slightly greater than simple cyst fluid. This likely represents a complicated or hemorrhagic ovarian cyst. Eva use of its size, consider follow-up with pelvic ultrasound in 3-4 weeks to ass ess resolution. Staff: Sylvia Signed by: Dr. Yonatan Ward M.D. on 12/26/2019 8:26 PM Dictated By: YONATAN WARD MD 45 Transcribed By: BUBBA on 12/26/192025 COPY TO: JORGE TURK DO
--- NOTE | 2020-04-01 01:20 | Emergency Department Note ---
History of Present Illnes History of Present Illness Chief Complaint: Extremity Trauma/Pain History of Present Illness This is a 49 year old female presents with c/o swollen tender area where she had an iv. pt states was at [facility] and discharged 2 days ago. had a tender area where iv was located with some redness . Historian: Patient Arrival Mode: Car Onset (how long ago): hour(s) (1) Location: right ac Quality: pain and redness Radiation: non-radiation Severity: mild Onset quality: gradual Duration (how long): hour(s) (1) Timing of current episode: constant Progression: worsening Chronicity: new Context: other (recent iv at another hospital) Relieving factors: none Exacerbating factors: none Associated symptoms: denies other symptoms Treatments prior to arrival: none Past Medical/Family History Physician Review I have reviewed the patient's past medical and family history. Any updates have been documented here. Past Medical History Recent Fever: No Clinical Suspicion of Infectio: No New/Unexplained Change in Ment: No Past Medical History: Hypertension, Hypothyroidism, Cancer Other Medical History: CELLULITIS IN RIGHT BREAST COLON CANCER Past Surgical History: T&A Other Surgery: RIGHT BREAST CELLULITIS (R) HEMICOLECTOMY FOR TUMOR PORTACATH M TO LEFT CHEST WALL Social History Smoking Cessation: Never Smoker Counseling Performed: No Alcohol Use: None Any Illegal Drug Use: No TB Exposure/Symptoms: No Physically hurt or threatened: No Family History Family history of heart diseas: No Other Last Tetanus: UTD Any Pre-Existing Lines (PICC,: Yes (LEFT CHEST WALL) Is patient up to date on immun: No Last Flu: UTD Last Pneumovax: UTD Review of Systems Review of Systems Constitutional: no symptoms EENTM: no symptoms Cardiovascular: no symptoms Respiratory: no symptoms Gastrointestinal: no symptoms Genitourinary: no symptoms Musculoskeletal: as per HPI Neurological: no symptoms Psychological: no symptoms Endocrine: no symptoms Hematological/Lymphatic: no symptoms Review of other systems All other systems reviewed and negative. Physical Exam Related Data Allergies: Coded Allergies: No Known Allergies (Unverified , 12/20/18) Triage Vital Signs Vital Signs Date Time Temp Pulse Resp B/P (MAP) Pulse Ox O2 Delivery O2 Flow Rate FiO2 04/01/20 01:09 97.9 92 16 142/98 97 Vital signs reviewed: Yes Physical Exam CONSTITUTIONAL Constitutional: well-developed, well-nourished HENT HENT: normocephalic, atraumatic, oropharynx clear/moist, nose normal HENT L/R: left ext ear normal, right ext ear normal EYES Eyes: PERRL, conjunctivae normal NECK Neck: ROM normal PULMONARY Pulmonary: effort normal, breath sounds normal CARDIOVASCULAR Cardiovascular: regular rhythm, heart sounds normal, capillary refill normal, normal rate GASTROINTESTINAL Abdominal: soft, nontender, bowel sounds normal GENITOURINARY Genitourinary: exam deferred SKIN Skin: warm, dry MUSCULOSKELETAL Musculoskeletal: ROM normal, other (mild erythema and swelling to iv site. mild tenderness present, pulse intact) NEUROLOGICAL Neurological: alert, oriented x 3, no gross motor or sensory deficits PSYCHOLOGICAL Psychological: mood/affect normal, judgement normal Critical Care Time Subsequent provider I assumed direction of critical care for this patient from another provider of my specialty. Assessment & Plan Assessment & Plan Final Impression: (1) Superficial thrombophlebitis of arm Assessment & Plan pt with superficial thrombophlebitis secondary recent iv d/c home, instructed on warm compresses Depart Disposition: HOME, SELF-CARE Last Vital Signs Date Time Temp Pulse Resp B/P (MAP) Pulse Ox O2 Delivery O2 Flow Rate FiO2 04/01/20 01:09 97.9 92 16 142/98 97 Home Meds Reported Medications Levothyroxine Sodium (LEVOTHYROXINE SODIUM) 25 Mcg Tablet, 25 MG PO DAILY 03/06/20 LELE BRUMFIELD MD April 01, 2020 01:20
== END 2020-04-01 01:15 | disposition home or self-care (01) ==
LOC: ER 01:02
DX: T81.72XA Complication of vein following a procedure, not elsewhere classified, initial encounter (principal); I80.8 Phlebitis and thrombophlebitis of other sites; I10 Essential (primary) hypertension; E03.9 Hypothyroidism, unspecified; Z85.038 Personal history of other malignant neoplasm of large intestine
CPT/HCPCS: 36415; 82948; 99282

== ENCOUNTER 2022-09-16 22:16 | Emergency (ER) | payer SELFPAY ==
[~2022-09-16] VITALS: Ht 172.7 cm; Wt 113.4 kg
[2022-09-16 23:45] LABS: INFLUENZAE A&B ANTIGEN (RAPID) NEGATIVE (NEGATIVE)
[2022-09-17] MEDS ORDERED: DOXYCYCLINE HY100 MG PO (01:23)
[2022-09-17] MEDS ORDERED: ACETAMINOPHEN 325 MG TAB PO ONE (01:30)
[2022-09-17] MEDS ORDERED: ACETAMINOPHEN 325 MG TAB ONE (01:38)
[2022-09-17 01:46] VITALS: BP 148/98
== END 2022-09-17 01:51 | disposition home or self-care (01) ==
LOC: ER 22:22
DX: R05.9 Cough, unspecified (principal); B34.9 Viral infection, unspecified; R68.83 Chills (without fever); R94.31 Abnormal electrocardiogram [ECG] [EKG]; Z20.822 Contact with and (suspected) exposure to COVID-19
CPT/HCPCS: 71045; 87400; 93005; 99283; U0002

== ENCOUNTER 2024-07-09 17:23 | Emergency (ER) | payer OTHER ==
[~2024-07-09] VITALS: Ht 172.7 cm; Wt 113.4 kg
[2024-07-09 18:15] VITALS: PULSE 106; RESP 14; TEMP 99.1
[2024-07-09 19:21] LABS: BASOPHILS # (AUTO) 0.1 (0.0-0.1); BASOPHILS % 0.4 % (0.0-1.0); EOSINOPHILS # (AUTO) 0.2 (0.0-0.4); EOSINOPHILS % 1.6 % (0.0-6.0); HEMATOCRIT 41.5 % (34.2-44.1); HEMOGLOBIN 13.2 g/dL (12.0-16.0); LYMPHOCYTES % 22.1 % (18.0-39.1); MEAN CORPUSCULAR HEMOGLOBIN 28.4 pg (28-32); MEAN CORPUSCULAR HGB CONC 31.8 g/dL (31-35); MEAN CORPUSCULAR VOLUME 89.2 fL (81-99); MONOCYTES # (AUTO) 0.8 (0.2-0.8); MONOCYTES % 6.1 % (4.4-11.3); NEUTROPHILS # (AUTO) 9.2 (2.1-6.9); NEUTROPHILS % 67.5 % (38.7-80.0); PLATELET COUNT 223 x10e3/uL (140-360); RED BLOOD COUNT 4.65 x10e6/uL (3.6-5.1); RED CELL DISTRIBUTION WIDTH 12.6 % (11.7-14.4)
[2024-07-09 19:39] LABS: ALBUMIN 2.6 g/dL (3.5-5.0); ALBUMIN/GLOBULIN RATIO 0.6 (0.8-2.0); ANION GAP 18.2 mmol/L (8-16); BILIRUBIN,TOTAL 0.3 mg/dL (0.2-1.2); CALCIUM 11.4 mg/dL (8.4-10.2); CREATININE, SERUM 0.83 mg/dL (0.57-1.11); POTASSIUM 4.2 mmol/L (3.5-5.1); TOTAL PROTEIN 6.7 g/dL (6.5-8.1)
[2024-07-09] MEDS ORDERED: INDOMETHACIN50 MG PO (20:03)
[2024-07-09 20:10] VITALS: BP 149/92; PULSE 74; RESP 18; TEMP 98.1; O2SAT 96
== END 2024-07-09 20:11 | disposition home or self-care (01) ==
LOC: ER 17:30
DX: M19.011 Primary osteoarthritis, right shoulder (principal); M19.042 Primary osteoarthritis, left hand; M19.072 Primary osteoarthritis, left ankle and foot; M19.071 Primary osteoarthritis, right ankle and foot
CPT/HCPCS: 36415; 80053; 82948; 85025; 99284

== ENCOUNTER 2024-09-21 23:17 | Inpatient (IN) | payer OTHER ==
[~2024-09-21] VITALS: Ht 172.7 cm; Wt 113.4 kg
[~2024-09-21 23:17] MED LIST changes: +INDOMETHACIN50 MG PO
[2024-09-21 23:18] VITALS: TEMP 97.8
[2024-09-22] VITALS (10 sets, daily range): BP systolic 128–142; BP diastolic 85–96; PULSE 83–102; RESP 16–20; TEMP 97.7–98.2; O2SAT 98–100
[2024-09-22] MEDS: ONDANSETRON HCL 4 MG ORAL DISINTEGRATING TAB PO ONE (00:04)
[2024-09-22] MEDS ORDERED: DEXTROSE 50% SYRINGE 50 ML IV PRN ×3 (01:30→09:15)
[2024-09-22] MEDS: SODIUM CHLORIDE 0.9% 1000ML 1,000 ML IV ONE (01:36)
[2024-09-22] MEDS: SODIUM CHLORIDE 0.9% 1000ML 1,000 ML IV SCH ×2 (01:36→17:26)
[2024-09-22 01:42] LABS: BASOPHILS # (AUTO) 0.1 (0.0-0.1); BASOPHILS % 0.5 % (0.0-1.0); EOSINOPHILS # (AUTO) 0.2 (0.0-0.4); EOSINOPHILS % 1.5 % (0.0-6.0); HEMATOCRIT 48.8 % (34.2-44.1); HEMOGLOBIN 15.2 g/dL (12.0-16.0); LYMPHOCYTES # (AUTO) 3.3 (1.0-3.2); LYMPHOCYTES % 28.8 % (18.0-39.1); MEAN CORPUSCULAR HGB CONC 31.1 g/dL (31-35); MEAN CORPUSCULAR VOLUME 86.5 fL (81-99); MONOCYTES # (AUTO) 0.7 (0.2-0.8); MONOCYTES % 5.9 % (4.4-11.3); NEUTROPHILS # (AUTO) 7.2 (2.1-6.9); PLATELET COUNT 241 x10e3/uL (140-360); RED BLOOD COUNT 5.64 x10e6/uL (3.6-5.1); RED CELL DISTRIBUTION WIDTH 13.8 % (11.7-14.4); WHITE BLOOD COUNT 11.44 x10e3/uL (4.8-10.8)
[2024-09-22 02:10] LABS: ALBUMIN 3.6 g/dL (3.5-5.0); ALBUMIN/GLOBULIN RATIO 0.8 (0.8-2.0); ANION GAP 16.2 mmol/L (8-16); BILIRUBIN,TOTAL 0.5 mg/dL (0.2-1.2); CALCIUM 11.3 mg/dL (8.4-10.2); CREATININE, SERUM 0.93 mg/dL (0.57-1.11); INR 0.99; PARTIAL THROMBOPLASTIN TIME 30.4 seconds (23.8-35.5); POTASSIUM 4.2 mmol/L (3.5-5.1); PROTHROMBIN TIME 13.7 seconds (11.9-14.5)
[2024-09-22] MEDS: Morphine 4mg INJECTION 4 MG/ML INJ IV PRN (02:19)
[2024-09-22] MEDS: ONDANSETRON HCL INJ 2MG/ML 2ML 2 MG/ML VIAL IV PRN (02:19)
[2024-09-22 02:20] LABS: LIPASE 14 U/L (8-78)
[2024-09-22 02:44] LABS: AMYLASE 17 U/L (25-125)
[2024-09-22] MEDS ORDERED: INFLUENZA VIRUS VAC SPLIT INJ 0.5 ML SYR IM SCH (03:18)
[2024-09-22] MEDS ORDERED: INSULIN REGULAR, HUMAN 100 UNIT/1 ML SQ SCH (07:30)
[2024-09-22] MEDS: INSULIN LISPRO 100 UNIT/1 ML 3ML VIAL SQ SCH (11:30)
[2024-09-23] VITALS (7 sets, daily range): BP systolic 118–163; BP diastolic 74–96; PULSE 83–100; RESP 16–21; TEMP 97.5–99; O2SAT 93–100
[2024-09-23] MEDS: ACETAMINOPHEN 1000 MG/100 ML IV PRN (03:52)
[2024-09-23 06:03] LABS: BASOPHILS # (AUTO) 0.1 (0.0-0.1); BASOPHILS % 0.8 % (0.0-1.0); EOSINOPHILS # (AUTO) 0.2 (0.0-0.4); EOSINOPHILS % 2.8 % (0.0-6.0); HEMATOCRIT 40.9 % (34.2-44.1); HEMOGLOBIN 12.5 g/dL (12.0-16.0); LYMPHOCYTES # (AUTO) 3.7 (1.0-3.2); LYMPHOCYTES % 43.5 % (18.0-39.1); MEAN CORPUSCULAR HEMOGLOBIN 26.7 pg (28-32); MEAN CORPUSCULAR HGB CONC 30.6 g/dL (31-35); MEAN CORPUSCULAR VOLUME 87.4 fL (81-99); MONOCYTES # (AUTO) 0.5 (0.2-0.8); NEUTROPHILS # (AUTO) 3.9 (2.1-6.9); NEUTROPHILS % 46.4 % (38.7-80.0); PLATELET COUNT 235 x10e3/uL (140-360); RED BLOOD COUNT 4.68 x10e6/uL (3.6-5.1); RED CELL DISTRIBUTION WIDTH 13.9 % (11.7-14.4); WHITE BLOOD COUNT 8.49 x10e3/uL (4.8-10.8)
[2024-09-23 06:29] LABS: ALBUMIN/GLOBULIN RATIO 0.9 (0.8-2.0); ANION GAP 12.9 mmol/L (8-16); BILIRUBIN,TOTAL 0.4 mg/dL (0.2-1.2); CALCIUM 9.8 mg/dL (8.4-10.2); CREATININE, SERUM 0.78 mg/dL (0.57-1.11); POTASSIUM 3.9 mmol/L (3.5-5.1); TOTAL PROTEIN 6.4 g/dL (6.5-8.1)
[2024-09-23 06:48] LABS: MAGNESIUM 1.6 MG/DL (1.3-2.1); PHOSPHORUS 2.5 MG/DL (2.3-4.7)
[2024-09-24] VITALS (9 sets, daily range): BP systolic 139–173; BP diastolic 90–106; PULSE 74–100; RESP 16–20; TEMP 96.5–98.2; O2SAT 94–99
[2024-09-24] MEDS ORDERED: FENTANYL CITRATE/PF 100MCG/2 ML INJ ONE (12:16)
[2024-09-24] MEDS ORDERED: LIDOCAINE HCL 2% LOCAL INJ 5 ML SDV VIAL INJ ONE ×2 (12:16→12:33)
[2024-09-24] MEDS ORDERED: MIDAZOLAM HCL 2 MG/2 ML VIAL ONE (12:16)
[2024-09-24] MEDS ORDERED: PROPOFOL IV EMULSION 10 MG/ML 20 ML VIAL ONE ×2 (12:16→12:33)
[2024-09-24] MEDS ORDERED: ROCURONIUM BROMIDE 1 ML IV ONE (12:33)
[2024-09-24] MEDS ORDERED: BUPIVACAINE HCL 0.5% INJ 30 ML VIAL INJ ONE (12:56)
[2024-09-24] MEDS ORDERED: BUPIVACAINE/EPI 0.5% 30ML SDV-MPF INJ ONE (13:03)
[2024-09-24] MEDS ORDERED: GLYCOPYRROLATE INJ 0.2 MG/ML VIAL ONE ×2 (13:21→14:03)
[2024-09-24] MEDS ORDERED: METOCLOPRAMIDE HCL 10 MG/2ML VIAL ONE (13:21)
[2024-09-24] MEDS ORDERED: FAMOTIDINE 20 MG/2 ML VIAL IV ONE (13:21)
[2024-09-24] MEDS ORDERED: DEXAMETHASONE SOD PHOS INJ 4 MG/ML SDV ONE (13:21)
[2024-09-24] MEDS ORDERED: ACETAMINOPHEN 1000 MG/100 ML 100 ML IV ONE (13:36)
[2024-09-24] MEDS ORDERED: NEOSTIGMINE 1 MG/ML 10ML VIAL ONE (14:03)
[2024-09-24] MEDS: SODIUM CHLORIDE 0.9% 1000ML 1,000 ML IV SCH (15:56)
[2024-09-25] VITALS (9 sets, daily range): BP systolic 132–171; BP diastolic 82–105; PULSE 82–108; RESP 17–20; TEMP 97.7–98.2; O2SAT 94–98
[2024-09-25] MEDS: ONDANSETRON HCL INJ 2MG/ML 2ML 2 MG/ML VIAL IV PRN (00:11)
[2024-09-25] MEDS: HYDROCODONE/APAP 5MG-325MG TAB PO PRN (04:33)
[2024-09-25 05:48] LABS: BASOPHILS # (AUTO) 0.1 (0.0-0.1); BASOPHILS % 0.6 % (0.0-1.0); EOSINOPHILS # (AUTO) 0.2 (0.0-0.4); EOSINOPHILS % 1.7 % (0.0-6.0); HEMATOCRIT 41.5 % (34.2-44.1); HEMOGLOBIN 12.7 g/dL (12.0-16.0); LYMPHOCYTES # (AUTO) 3.8 (1.0-3.2); MEAN CORPUSCULAR HEMOGLOBIN 26.8 pg (28-32); MEAN CORPUSCULAR HGB CONC 30.6 g/dL (31-35); MEAN CORPUSCULAR VOLUME 87.6 fL (81-99); MONOCYTES # (AUTO) 0.7 (0.2-0.8); MONOCYTES % 6.1 % (4.4-11.3); NEUTROPHILS # (AUTO) 6.3 (2.1-6.9); NEUTROPHILS % 57.2 % (38.7-80.0); PLATELET COUNT 240 x10e3/uL (140-360); RED BLOOD COUNT 4.74 x10e6/uL (3.6-5.1); RED CELL DISTRIBUTION WIDTH 13.7 % (11.7-14.4); WHITE BLOOD COUNT 11.06 x10e3/uL (4.8-10.8)
[2024-09-25 06:12] LABS: ANION GAP 12.5 mmol/L (8-16); CREATININE, SERUM 0.78 mg/dL (0.57-1.11); POTASSIUM 3.5 mmol/L (3.5-5.1)
[2024-09-25] MEDS: HYDRALAZINE HCL 20 MG/ML VIAL IV PRN (21:54)
[2024-09-26] VITALS (8 sets, daily range): BP systolic 129–168; BP diastolic 83–100; PULSE 92–116; RESP 17–22; TEMP 97.4–98.2; O2SAT 96–98
[2024-09-26 05:45] LABS: BASOPHILS # (AUTO) 0.1 (0.0-0.1); BASOPHILS % 0.5 % (0.0-1.0); EOSINOPHILS # (AUTO) 0.2 (0.0-0.4); EOSINOPHILS % 1.7 % (0.0-6.0); HEMATOCRIT 41.2 % (34.2-44.1); HEMOGLOBIN 12.8 g/dL (12.0-16.0); LYMPHOCYTES # (AUTO) 3.2 (1.0-3.2); LYMPHOCYTES % 28.6 % (18.0-39.1); MEAN CORPUSCULAR HEMOGLOBIN 26.9 pg (28-32); MEAN CORPUSCULAR HGB CONC 31.1 g/dL (31-35); MEAN CORPUSCULAR VOLUME 86.6 fL (81-99); MONOCYTES # (AUTO) 0.8 (0.2-0.8); MONOCYTES % 7.3 % (4.4-11.3); NEUTROPHILS # (AUTO) 6.8 (2.1-6.9); NEUTROPHILS % 61.4 % (38.7-80.0); PLATELET COUNT 238 x10e3/uL (140-360); RED BLOOD COUNT 4.76 x10e6/uL (3.6-5.1); RED CELL DISTRIBUTION WIDTH 13.9 % (11.7-14.4); WHITE BLOOD COUNT 11.09 x10e3/uL (4.8-10.8)
[2024-09-26 06:03] LABS: ANION GAP 13.3 mmol/L (8-16); CALCIUM 10.3 mg/dL (8.4-10.2); CREATININE, SERUM 0.74 mg/dL (0.57-1.11)
[2024-09-26 06:04] LABS: POTASSIUM 3.3 mmol/L (3.5-5.1)
[2024-09-26] MEDS: POTASSIUM CHLORIDE 10MEQ EA PO ONE (11:32)
== END 2024-09-26 13:55 | disposition home or self-care (01) | DRG 355 ==
LOC: ER 23:22 → ERHOLD 09-22 01:20 → MED/SURG2 09-22 02:58
PROVIDERS: ADMIT Internal Medicine; ATTEND Internal Medicine
PROC: 0WUF0JZ Supplement Abdominal Wall with Synthetic Substitute, Open Approach (ICD-10-PCS; principal; 2024-09-24 13:02)
DX: K43.0 Incisional hernia with obstruction, without gangrene (principal); E03.9 Hypothyroidism, unspecified; I10 Essential (primary) hypertension; E11.9 Type 2 diabetes mellitus without complications; E66.01 Morbid (severe) obesity due to excess calories; Z68.38 Body mass index [BMI] 38.0-38.9, adult; Z59.71 Insufficient health insurance coverage; Z79.890 Hormone replacement therapy; I25.2 Old myocardial infarction; Z90.49 Acquired absence of other specified parts of digestive tract; Z85.038 Personal history of other malignant neoplasm of large intestine; Z92.21 Personal history of antineoplastic chemotherapy
CPT/HCPCS: 36415; 74018; 74019; 74176; 80048; 80053; 82150; 82948; 83036; 83690; 83735; 84100; 85025; 85610; 85730; 93005; 94799; 99284; C1781; J0360; J1100; J2003; J2250; J2270; J2405; J2470; J2543; J2710; J2765; J7030; Q0162